=== PATIENT | male | born 1940 | race Caucasian/White ===

== ENCOUNTER → 2016-09-17 15:55 | Emergency (ER) | payer MEDICARE ==
[2016-09-17 17:13] LABS: Hematocrit 40 % (42-52); Mean Corpuscular HGB Conc 33 g/dl (31-36); Mean Corpuscular Hemoglobin 29 pg (27-31); Mean Corpuscular Volume 90 fL (80-94); Mean Platelet Volume 10 um3 (7.4-10.4); Red Blood Count 4.43 10^6/ul (4.0-5.4); Red Cell Distribution Width 17 % (10.5-15); White Blood Count 8.4 10^3/ul (3.5-10.8)
[2016-09-17 17:24] LABS: Albumin 4.1 g/dL (3.2-5.2); BUN/Creatinine Ratio 18.3 (8-20); Calcium 9.5 mg/dL (8.6-10.3); EGFR African American 76.1 (>60); EGFR Non-African American 59.2 (>60); Globulin 3.3 g/dL (2-4); Potassium 4.4 mmol/L (3.5-5.0); Total Bilirubin 1.2 mg/dL (0.2-1.0); Total Protein 7.4 g/dL (6.4-8.9)
[2016-09-17 19:20] VITALS: BP 146/71
--- NOTE | 2016-09-18 | ED ---
Madelyn Valdez Salem, scribed for David Price MD on 09/17/16 at 1846 . GI/ HPI - HPI Summary HPI Summary: Patient is a 76 M who presents to the ED with black tarry stool for the past few days. He states that he has been making a BM approximately 3 times a day (2 , thus far today). He reports lethargy and SOB. 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 Ray today and was directed to the ED. - History of Current Complaint Chief Complaint: EDGIBleed Time Seen by Provider: 09/17/16 18:24 Stated Complaint: BLACK STOOL, SENT BY DR RAY Hx Obtained From: Patient Onset/Duration: Started Days Ago, Atraumatic, Still Present Timing: Intermittent Severity: Moderate Current Severity: Moderate Pain Intensity: 0 Associated Signs and Symptoms: Positive: Black Tarry Stool Aggravating Factor(s): Nothing Alleviating Factor(s): Nothing - Allergy/Home Medications Allergies/Adverse Reactions: Allergies Allergy/AdvReac Type Severity Reaction Status Date / Time Bacitracin [From Polysporin] Allergy Rash Verified 12/29/15 12:50 Irbesartan [From Avapro] Allergy Unknown Verified 12/29/15 12:50 Reaction Details Amiodarone AdvReac Headache Verified 12/29/15 12:50 Ciprofloxacin [From Cipro] AdvReac Headache Verified 12/29/15 12:50 Dofetilide [From Tikosyn] AdvReac Headache Verified 12/29/15 12:50 Gabapentin AdvReac See Comment Verified 12/29/15 12:50 Hydrocodone AdvReac GI Upset Verified 12/29/15 12:50 Lisinopril AdvReac Coughing Verified 12/29/15 12:50 Polymyxin B [From Polysporin] AdvReac Rash Verified 12/29/15 12:50 Sotalol AdvReac Headache Verified 12/29/15 12:50 Spironolactone AdvReac See Comment Verified 12/29/15 12:50 [From Aldactone] PMH/Surg Hx/FS Hx/Imm Hx Endocrine/Hematology History: Reports: Hx Thyroid Disease Denies: Hx Diabetes, Hx Systemic Lupus Erythematosus Cardiovascular History: Reports: Hx Auto Implanted Cardiovert Defib, Hx Congestive Heart Failure, Hx Coronary Artery Disease, Hx Hypertension, Hx Pacemaker/ICD Respiratory History: Reports: Hx Asthma Denies: Hx Chronic Obstructive Pulmonary Disease (COPD) GI History: Reports: Hx Gastroesophageal Reflux Disease, Hx Ulcer History: Denies: Hx Renal Disease Musculoskeletal History: Reports: Hx Arthritis - LEFT HIP Sensory History: Reports: Hx Contacts or Glasses Denies: Hx Cataracts Opthamlomology History: Reports: Hx Contacts or Glasses Denies: Hx Cataracts Neurological History: Reports: Hx Migraine - MEDICATION RXN - Cancer History Hx Chemotherapy: No - Surgical History Surgery Procedure, Year, and Place: ICD PLACEMENT, LT TOTAL HIP, KNEE, CABG, TONSILLECTOMY, APPENDECTOMY, CHOLECYSTECTOMY, VOCAL CHORD SURGERY Hx Anesthesia Reactions: No Infectious Disease History: No Infectious Disease History: Denies: Hx Hepatitis, Hx Human Immunodeficiency Virus (HIV), Traveled Outside the [place] in Last 30 Days - Family History Known Family History: Positive: Cardiac Disease, Hypertension - Social History Alcohol Use: None Substance Use Type: Reports: None Smoking Status (MU): Former Smoker Type: Cigarettes, Pipe Have You Smoked in the Last Year: No Review of Systems Positive: Other - Lethargy. Positive: Shortness Of Breath Positive: other - Black tarry stool. All Other Systems Reviewed And Are Negative: Yes Physical Exam Triage Information Reviewed: Yes Vital Signs On Initial Exam: Initial Vitals Temp Pulse Resp BP Pulse Ox 97.4 F 80 16 143/78 99 09/17/16 16:22 09/17/16 16:22 09/17/16 16:22 09/17/16 16:22 09/17/16 16:22 Vital Signs Reviewed: Yes Appearance: Positive: Well-Appearing, No Pain Distress, Obese Skin: Positive: Warm, Skin Color Reflects Adequate Perfusion, Dry Head/Face: Positive: Normal Head/Face Inspection Eyes: Positive: Normal Neck: Positive: Supple, Nontender Respiratory/Lung Sounds: Positive: Clear to Auscultation, Breath Sounds Present Cardiovascular: Positive: RRR Abdomen Description: Positive: Nontender, Soft Bowel Sounds: Positive: Present Musculoskeletal: Positive: Normal Neurological: Positive: Normal Psychiatric: Positive: Normal, Affect/Mood Appropriate Diagnostics - Vital Signs Vital Signs Temp Pulse Resp BP Pulse Ox 09/17/16 17:39 97.3 F 84 17 140/79 100 09/17/16 16:22 97.4 F 80 16 143/78 99 - Laboratory Lab Results: Lab Results 09/17/16 09/17/16 09/17/16 Range/Units 16:30 16:30 16:30 WBC 8.4 (3.5-10.8) 10^3/ul RBC 4.43 (4.0-5.4) 10^6/ul Hgb 13.0 L (14.0-18.0) g/dl Hct 40 L (42-52) % MCV 90 (80-94) fL MCH 29 (27-31) pg MCHC 33 (31-36) g/dl RDW 17 H (10.5-15) % Plt Count 134 L (150-450) 10^3/ul MPV 10 (7.4-10.4) um3 Neut % (Auto) 62.1 (38-83) % Lymph % (Auto) 16.0 L (25-47) % Morrison % (Auto) 12.1 H (1-9) % Eos % (Auto) 8.7 H (0-6) % Baso % (Auto) 1.1 (0-2) % Absolute Neuts (auto) 5.2 (1.5-7.7) 10^3/ul Absolute Lymphs (auto) 1.3 (1.0-4.8) 10^3/ul Absolute Monos (auto) 1.0 H (0-0.8) 10^3/ul Absolute Eos (auto) 0.7 H (0-0.6) 10^3/ul Absolute Basos (auto) 0.1 (0-0.2) 10^3/ul Absolute Nucleated RBC 0.01 10^3/ul Nucleated RBC % 0.1 Sodium 137 (133-145) mmol/L Potassium 4.4 (3.5-5.0) mmol/L Chloride 105 (101-111) mmol/L Carbon Dioxide 26 (22-32) mmol/L Anion Gap 6 (2-11) mmol/L BUN 22 (6-24) mg/dL Creatinine 1.20 H (0.67-1.17) mg/dL Est GFR ( Amer) 76.1 (>60) Est GFR (Non-Af Amer) 59.2 (>60) BUN/Creatinine Ratio 18.3 (8-20) Glucose 105 H (70-100) mg/dL Calcium 9.5 (8.6-10.3) mg/dL Total Bilirubin 1.20 H (0.2-1.0) mg/dL AST 23 (13-39) U/L ALT 12 (7-52) U/L Alkaline Phosphatase 51 (34-104) U/L Total Protein 7.4 (6.4-8.9) g/dL Albumin 4.1 (3.2-5.2) g/dL Globulin 3.3 (2-4) g/dL Albumin/Globulin Ratio 1.2 (1-3) Blood Type O Positive Antibody Screen Negative Result Diagrams: 09/17/16 16:30 09/17/16 16:30 Lab Statement: Any lab studies that have been ordered have been reviewed, and results considered in the medical decision making process. Re-Evaluation - Re-Evaluation First Eval Re-Evaluation Time: 18:54 Comment: Discussed plan. GIGU Course/Dx - Course Course Of Treatment: Mr. Romero presented C/O black stools for a few days. He was found to have a hemoglobin of 13 which was normal for him and his BUN was not elevated. Rectal exam revealed black stool on the glove and was guiac positive. Dr. Jewell agreed to follow him closely. Assessment/Plan: Dr. Jewell (gastro) @ 0026. Discussed pt's case. - Diagnoses Provider Diagnoses: GI bleed Discharge - Discharge Plan Condition: Stable Disposition: HOME Patient Education Materials: Gastrointestinal Bleeding (ED) Referrals: Con Jewell MD [Medical Doctor] - Additional Instructions: Please follow up with Dr. Jewell tomorrow. The documentation as recorded by the Madelyn holcomb Salem accurately reflects the service I personally performed and the decisions made by , David Price MD.
--- NOTE | 2016-09-18 18:46 | ED ---
Progress - Progress Note Progress Note: Stool occult blood result is positive - pt was dx'd w/ GI at visit and advised to see GI today for f/u. Called to see if pt has followed up - LMTC if he wasn' t able to go or feeling worse. Re-Evaluation - Re-Evaluation First Eval Re-Evaluation Time: 18:54 Comment: Discussed plan. Course/Dx - Course Course Of Treatment: Mr. Romero presented C/O black stools for a few days. He was found to have a hemoglobin of 13 which was normal for him and his BUN was not elevated. Rectal exam revealed black stool on the glove and was guiac positive. Dr. Jewell agreed to follow him closely. - Diagnoses Provider Diagnoses: GI bleed
== END | disposition home or self-care (01) ==
LOC: ED 15:55
DX: K92.2 Gastrointestinal hemorrhage, unspecified (principal); E07.9 Disorder of thyroid, unspecified; I25.10 Atherosclerotic heart disease of native coronary artery without angina pectoris; I10 Essential (primary) hypertension; Z95.0 Presence of cardiac pacemaker; I50.9 Heart failure, unspecified; J45.909 Unspecified asthma, uncomplicated; K21.9 Gastro-esophageal reflux disease without esophagitis; G43.909 Migraine, unspecified, not intractable, without status migrainosus; Z88.1 Allergy status to other antibiotic agents; Z88.5 Allergy status to narcotic agent; Z87.891 Personal history of nicotine dependence
CPT/HCPCS: 36415; 80053; 82272; 85025; 85610; 86850; 86900; 86901; 99282

== ENCOUNTER 2017-07-02 01:59 | Observation (INO) | payer MEDICARE ==
[2017-07-02] MEDS ORDERED: Albuterol/Ipratropium NEB.SOL* Albuterol 2.5 MG/Ipratropium 0.5 MG 3 ML INH ONE (02:41)
[2017-07-02] MEDS ORDERED: Acetaminophen TAB* 325 MG PO ONE (02:41)
[2017-07-02] MEDS ORDERED: methylPREDNISolone 125 MG* 2 ML VIAL IV ONE (02:41)
[2017-07-02] MEDS ORDERED: Magnesium Sulfate 2 GM IV* 2 GM/50 ML BAG IVPB ONE (02:41)
[2017-07-02] MEDS ORDERED: Albuterol 2.5 MG/3 ML NEB.SOL* (0.083%) ONE (02:54)
[2017-07-02] MEDS: Albuterol 2.5 MG/3 ML NEB.SOL* (0.083%) INH SCH ×2 (02:58→02:59)
[2017-07-02 03:04] LABS: EGFR Non-African American 44.3 (>60)
[2017-07-02 03:23] LABS: INR 1.13 (0.77-1.02)
[2017-07-02] MEDS ORDERED: Metoprolol Tartrate IV* 1 MG/ML 5 ML VIAL IV PRN (03:39)
[2017-07-02 03:59] LABS: ABS Basophils 0 10^3/ul (0-0.2); ABS Eosinophils 0.3 10^3/ul (0-0.6); ABS Lymphocytes 0.8 10^3/ul (1.0-4.8); ABS Monocytes 1.1 10^3/ul (0-0.8); ABS Nucleated RBC 0 10^3/ul; Eosinophil % 3.8 % (0-6); Hematocrit 35 % (42-52); Hemoglobin 11.9 g/dl (14.0-18.0); Lymphocyte % 10.1 % (25-47); Mean Corpuscular HGB Conc 34 g/dl (31-36); Mean Corpuscular Hemoglobin 31 pg (27-31); Mean Corpuscular Volume 91 fL (80-94); Mean Platelet Volume 9.8 um3 (7.4-10.4); Nucleated Red Blood Cells % 0; Platelet Count 111 10^3/ul (150-450); Red Blood Count 3.87 10^6/ul (4.0-5.4); Red Cell Distribution Width 17 % (10.5-15); White Blood Count 8.3 10^3/ul (3.5-10.8)
[2017-07-02] MEDS ORDERED: Oseltamivir CAP* 75 MG CAP PO ONE (04:32)
[2017-07-02] MEDS ORDERED: Al Hydrox/Mg Hydrox/Simet LIQ* 30 ML UDC PO PRN (05:01)
[2017-07-02] MEDS ORDERED: Docusate CAP* 100 MG PO PRN (05:01)
[2017-07-02] MEDS ORDERED: Senna TAB PO PRN (05:01)
[2017-07-02] MEDS ORDERED: Ondansetron INJ* 2 MG/ML VIAL IV PRN (05:01)
--- NOTE | 2017-07-02 05:02 | ED ---
Jordy Valdez Tecjoon, scribed for Joe Pimentel MD on 07/02/17 at 0241 . Shortness of Breath - History of Current Complaint Chief Complaint: EDShortnessOfBreath Time Seen by Provider: 07/02/17 02:30 Hx Obtained From: Patient Onset/Duration: Lasting Days, Still Present Timing: Intermittent Episodes Lasting: - 1-2 hours Current Severity: Mild - 2/10 Dyspnea At: Rest Aggrevating Factors: Nothing Alleviating Factors: Nothing Associated Signs & Symptoms: Negative - vomiting, Cough (Productive), Fever, Chills, Nasal Congestion - Allergy/Home Medications Allergies/Adverse Reactions: Allergies Allergy/AdvReac Type Severity Reaction Status Date / Time bacitracin AdvReac Intermediate Rash Verified 07/02/17 02:13 sotalol AdvReac Mild Headache Verified 07/02/17 02:13 amiodarone AdvReac Headache Verified 07/02/17 02:13 ciprofloxacin [From Cipro] AdvReac Headache Verified 07/02/17 02:13 dofetilide [From Tikosyn] AdvReac Headache Verified 07/02/17 02:13 gabapentin AdvReac See Comment Verified 07/02/17 02:13 hydrocodone AdvReac GI Upset Verified 07/02/17 02:13 irbesartan [From Avapro] AdvReac Unknown Verified 07/02/17 02:13 Reaction Details lisinopril AdvReac Coughing Verified 07/02/17 02:13 polymyxin B AdvReac Rash Verified 07/02/17 02:13 spironolactone AdvReac See Comment Verified 07/02/17 02:13 Home Medications: Home Medications Furosemide TAB* [Lasix TAB*] 20 mg PO DAILY 07/02/17 [History Confirmed 07/02/17 ] Mometasone Furoate [Nasonex] 50 mcg NA QPM 07/02/17 [History Confirmed 07/02/17] PMH/Surg Hx/FS Hx/Imm Hx Previously Healthy: No Endocrine/Hematology History: Reports: Hx Thyroid Disease Denies: Hx Diabetes, Hx Systemic Lupus Erythematosus Cardiovascular History: Reports: Hx Auto Implanted Cardiovert Defib, Hx Congestive Heart Failure, Hx Coronary Artery Disease, Hx Hypertension, Hx Pacemaker/ICD Respiratory History: Reports: Hx Asthma Denies: Hx Chronic Obstructive Pulmonary Disease (COPD) GI History: Reports: Hx Gastroesophageal Reflux Disease, Hx Ulcer History: Denies: Hx Renal Disease Musculoskeletal History: Reports: Hx Arthritis - LEFT HIP Sensory History: Reports: Hx Contacts or Glasses Denies: Hx Cataracts Opthamlomology History: Reports: Hx Contacts or Glasses Denies: Hx Cataracts Neurological History: Reports: Hx Migraine - MEDICATION RXN - Cancer History Hx Chemotherapy: No - Surgical History Surgery Procedure, Year, and Place: ICD PLACEMENT, LT TOTAL HIP, KNEE, CABG, TONSILLECTOMY, APPENDECTOMY, CHOLECYSTECTOMY, VOCAL CHORD SURGERY Hx Anesthesia Reactions: No Infectious Disease History: No Infectious Disease History: Denies: Hx Hepatitis, Hx Human Immunodeficiency Virus (HIV), Traveled Outside the [place] in Last 30 Days - Family History Known Family History: Positive: Cardiac Disease, Hypertension - Social History Lives: With Family Alcohol Use: None Hx Substance Use: No Substance Use Type: Reports: None Hx Tobacco Use: Yes Smoking Status (MU): Former Smoker Type: Cigarettes, Pipe Have You Smoked in the Last Year: No Review of Systems Positive: Fever, Chills Positive: Other - nasal congestion Positive: Shortness Of Breath, Cough Positive: Other - back pain All Other Systems Reviewed And Are Negative: Yes Physical Exam - Summary Physical Exam Summary: VITAL SIGNS: Reviewed. GENERAL: Patient is a well-developed and nourished (MALE OR FEMALE) who is lying comfortable in the stretcher. HEAD AND FACE: No signs of trauma. No ecchymosis, hematomas or skull depressions. No sinus tenderness. EYES: PERRLA, EOMI x 2, No injected conjunctiva, no nystagmus. EARS: Hearing grossly intact. Ear canals and tympanic membranes are within normal limits. MOUTH: Oropharynx within normal limits. NECK: JVD CHEST: Symmetric, no tenderness at palpation LUNGS: Mild respiratory distress. Expiratory wheezes.Rhonchi CVS: Regular rate and rhythm, S1 and S2 present, no murmurs or gallops appreciated. ABDOMEN: Soft, non-tender. No signs of distention. No rebound no guarding, and no masses palpated. Bowel sounds are normal. EXTREMITIES: FROM in all major joints, no edema, no cyanosis or clubbing. NEURO: Alert and oriented x 3. No acute neurological deficits. Speech is normal and follows commands. SKIN: Dry and warm Triage Information Reviewed: Yes Vital Signs On Initial Exam: Initial Vitals Temp Pulse Resp BP Pulse Ox 98.1 F 87 26 131/63 97 07/02/17 02:00 07/02/17 02:00 07/02/17 02:00 07/02/17 02:00 07/02/17 02:00 Vital Signs Reviewed: Yes Diagnostics - Vital Signs Vital Signs Temp Pulse Resp BP Pulse Ox 07/02/17 02:00 98.1 F 87 26 131/63 97 - Laboratory Lab Results: Lab Results 07/02/17 07/02/17 07/02/17 Range/Units 02:35 02:35 02:35 WBC (3.5-10.8) 10^3/ul RBC (4.0-5.4) 10^6/ul Hgb (14.0-18.0) g/dl Hct (42-52) % MCV (80-94) fL MCH (27-31) pg MCHC (31-36) g/dl RDW (10.5-15) % Plt Count (150-450) 10^3/ul MPV (7.4-10.4) um3 Neut % (Auto) (38-83) % Lymph % (Auto) (25-47) % [place] % (Auto) (0-7) % Eos % (Auto) (0-6) % Baso % (Auto) (0-2) % Absolute Neuts (auto) (1.5-7.7) 10^3/ul Absolute Lymphs (auto) (1.0-4.8) 10^3/ul Absolute Monos (auto) (0-0.8) 10^3/ul Absolute Eos (auto) (0-0.6) 10^3/ul Absolute Basos (auto) (0-0.2) 10^3/ul Absolute Nucleated RBC 10^3/ul Nucleated RBC % INR (Anticoag Therapy) (0.77-1.02) APTT (26.0-36.3) seconds Patient Temperature ABG pH (7.35-7.45) ABG pH (Temp Correct) ABG pCO2 (35-45) mmHg ABG pCO2 (Temp Corrct ABG pO2 (80-100) mmHg ABG pO2 (Temp Correct ABG HCO3 (19-31) mmol/L ABG O2 Saturation (95-98) % ABG Base Excess (-2.0-2.0) Respiration Rate O2 Delivery Device Ventilator Type Vent Mode FiO2 Inspiratory Time PEEP Pressure Support Pressure Control EPAP IPAP BiPAP Sodium 134 L (139-145) mmol/L Potassium 4.7 (3.5-5.0) mmol/L Chloride 103 (101-111) mmol/L Carbon Dioxide 24 (22-32) mmol/L Anion Gap 7 (2-11) mmol/L BUN 29 H (6-24) mg/dL Creatinine 1.54 H (0.67-1.17) mg/dL Est GFR ( Amer) 56.9 (>60) Est GFR (Non-Af Amer) 44.3 (>60) BUN/Creatinine Ratio 18.8 (8-20) Glucose 162 H (70-100) mg/dL Lactic Acid 1.5 (0.5-2.0) mmol/L Calcium 8.9 (8.6-10.3) mg/dL Total Bilirubin 1.10 H (0.2-1.0) mg/dL AST 22 (13-39) U/L ALT 14 (7-52) U/L Alkaline Phosphatase 75 (34-104) U/L Troponin I 0.04 H* (<0.04) ng/mL C-Reactive Protein 54.87 H (< 5.00) mg/L B-Natriuretic Peptide 186 H ( - 100) pg/mL Total Protein 7.4 (6.4-8.9) g/dL Albumin 3.9 (3.2-5.2) g/dL Globulin 3.5 (2-4) g/dL Albumin/Globulin Ratio 1.1 (1-3) Influenza A (Rapid) (Negative) Influenza B (Rapid) (Negative) 07/02/17 07/02/17 07/02/17 Range/Units 02:35 03:47 03:55 WBC 8.3 (3.5-10.8) 10^3/ul RBC 3.87 L (4.0-5.4) 10^6/ul Hgb 11.9 L (14.0-18.0) g/dl Hct 35 L (42-52) % MCV 91 (80-94) fL MCH 31 (27-31) pg MCHC 34 (31-36) g/dl RDW 17 H (10.5-15) % Plt Count 111 L (150-450) 10^3/ul MPV 9.8 (7.4-10.4) um3 Neut % (Auto) 72.9 (38-83) % Lymph % (Auto) 10.1 L (25-47) % [place] % (Auto) 12.7 H (0-7) % Eos % (Auto) 3.8 (0-6) % Baso % (Auto) 0.5 (0-2) % Absolute Neuts (auto) 6.0 (1.5-7.7) 10^3/ul Absolute Lymphs (auto) 0.8 L (1.0-4.8) 10^3/ul Absolute Monos (auto) 1.1 H (0-0.8) 10^3/ul Absolute Eos (auto) 0.3 (0-0.6) 10^3/ul Absolute Basos (auto) 0 (0-0.2) 10^3/ul Absolute Nucleated RBC 0 10^3/ul Nucleated RBC % 0 INR (Anticoag Therapy) 1.13 H (0.77-1.02) APTT 32.6 (26.0-36.3) seconds Patient Temperature Not Reportable ABG pH 7.43 (7.35-7.45) ABG pH (Temp Correct) Not Reportable ABG pCO2 34 L (35-45) mmHg ABG pCO2 (Temp Corrct Not Reportable ABG pO2 81 (80-100) mmHg ABG pO2 (Temp Correct Not Reportable ABG HCO3 24.0 (19-31) mmol/L ABG O2 Saturation 98.0 (95-98) % ABG Base Excess -1.2 (-2.0-2.0) Respiration Rate Not Reportable O2 Delivery Device nasal cannula Ventilator Type Not Reportable Vent Mode Not Reportable FiO2 32 Inspiratory Time Not Reportable PEEP Not Reportable Pressure Support Not Reportable Pressure Control Not Reportable EPAP Not Reportable IPAP Not Reportable BiPAP Not Reportable Sodium (139-145) mmol/L Potassium (3.5-5.0) mmol/L Chloride (101-111) mmol/L Carbon Dioxide (22-32) mmol/L Anion Gap (2-11) mmol/L BUN (6-24) mg/dL Creatinine (0.67-1.17) mg/dL Est GFR ( Amer) (>60) Est GFR (Non-Af Amer) (>60) BUN/Creatinine Ratio (8-20) Glucose (70-100) mg/dL Lactic Acid (0.5-2.0) mmol/L Calcium (8.6-10.3) mg/dL Total Bilirubin (0.2-1.0) mg/dL AST (13-39) U/L ALT (7-52) U/L Alkaline Phosphatase (34-104) U/L Troponin I (<0.04) ng/mL C-Reactive Protein (< 5.00) mg/L B-Natriuretic Peptide ( - 100) pg/mL Total Protein (6.4-8.9) g/dL Albumin (3.2-5.2) g/dL Globulin (2-4) g/dL Albumin/Globulin Ratio (1-3) Influenza A (Rapid) (Negative) Influenza B (Rapid) (Negative) 07/02/17 Range/Units 03:58 WBC (3.5-10.8) 10^3/ul RBC (4.0-5.4) 10^6/ul Hgb (14.0-18.0) g/dl Hct (42-52) % MCV (80-94) fL MCH (27-31) pg MCHC (31-36) g/dl RDW (10.5-15) % Plt Count (150-450) 10^3/ul MPV (7.4-10.4) um3 Neut % (Auto) (38-83) % Lymph % (Auto) (25-47) % [place] % (Auto) (0-7) % Eos % (Auto) (0-6) % Baso % (Auto) (0-2) % Absolute Neuts (auto) (1.5-7.7) 10^3/ul Absolute Lymphs (auto) (1.0-4.8) 10^3/ul Absolute Monos (auto) (0-0.8) 10^3/ul Absolute Eos (auto) (0-0.6) 10^3/ul Absolute Basos (auto) (0-0.2) 10^3/ul Absolute Nucleated RBC 10^3/ul Nucleated RBC % INR (Anticoag Therapy) (0.77-1.02) APTT (26.0-36.3) seconds Patient Temperature ABG pH (7.35-7.45) ABG pH (Temp Correct) ABG pCO2 (35-45) mmHg ABG pCO2 (Temp Corrct ABG pO2 (80-100) mmHg ABG pO2 (Temp Correct ABG HCO3 (19-31) mmol/L ABG O2 Saturation (95-98) % ABG Base Excess (-2.0-2.0) Respiration Rate O2 Delivery Device Ventilator Type Vent Mode FiO2 Inspiratory Time PEEP Pressure Support Pressure Control EPAP IPAP BiPAP Sodium (139-145) mmol/L Potassium (3.5-5.0) mmol/L Chloride (101-111) mmol/L Carbon Dioxide (22-32) mmol/L Anion Gap (2-11) mmol/L BUN (6-24) mg/dL Creatinine (0.67-1.17) mg/dL Est GFR ( Amer) (>60) Est GFR (Non-Af Amer) (>60) BUN/Creatinine Ratio (8-20) Glucose (70-100) mg/dL Lactic Acid (0.5-2.0) mmol/L Calcium (8.6-10.3) mg/dL Total Bilirubin (0.2-1.0) mg/dL AST (13-39) U/L ALT (7-52) U/L Alkaline Phosphatase (34-104) U/L Troponin I (<0.04) ng/mL C-Reactive Protein (< 5.00) mg/L B-Natriuretic Peptide ( - 100) pg/mL Total Protein (6.4-8.9) g/dL Albumin (3.2-5.2) g/dL Globulin (2-4) g/dL Albumin/Globulin Ratio (1-3) Influenza A (Rapid) Positive A (Negative) Influenza B (Rapid) Negative (Negative) Result Diagrams: 07/02/17 03:47 07/02/17 02:35 Lab Statement: Any lab studies that have been ordered have been reviewed, and results considered in the medical decision making process. - Radiology CXR Xray Interpretation: No Acute Changes - CXR reveals, per radiologist, IMPRESSION : NO ACUTE PROCESS. ED physician has reviewed this radiology report. Radiology Interpretation Completed By: Radiologist - EKG 0205 Cardiac Rate: NL EKG Interpretation: paced rhythm at 81 BPM Course/Dx - Course Course Of Treatment: This patient is a 77 year old male presenting to [facility] accompanied by with a chief complaint of SOB since approx. yesterday evening. An EKG, taken 0205, reveals paced rhythm at 81 BPM. CXR reveals, per radiologist, IMPRESSION: NO ACUTE PROCESS. ED physician has reviewed this radiology report. Bloodwork Obtained. Urinalysis Obtained. Test results with no significant abnormalities except for Troponin. In the ED course the patient was given Tylenol, Albuterol, Magnesium Sulfate, Methylprednisolone, Tamiflu. We discussed patient care with Dr. Donovan (Hospitalist) and they agreed to admit the patient. Patient will be admitted with a diagnosis for Flu A and asthma. The patient is agreeable with this plan. - Diagnoses Provider Diagnoses: Flu, Asthma - Physician Notifications Discussed Care of Patient With: Carmela Donovan - Hospitalist Time Discussed With Above Provider: 04:38 - We discussed patient care with Dr. Donovan (Hospitalist) and they agreed to admit the patient. Instructed by Provider To: Admit As Inpatient Discharge - Sign-Out/Discharge Documenting (check all that apply): Discharge - admitted - Discharge Plan Condition: Stable Disposition: ADMITTED TO [facility] Referrals: Jaspal Jerry MD [Primary Care Provider] - The documentation as recorded by the Jordy holcomb Tecjoon accurately reflects the service I personally performed and the decisions made by , Joe Pimentel MD.
[2017-07-02] MEDS ORDERED: Triamcinolone 0.5% OINT * 15 GM TUBE TOPICAL PRN (05:05)
[2017-07-02] MEDS ORDERED: Albuterol 2.5 MG/3 ML NEB.SOL* (0.083%) INH PRN (05:06)
[2017-07-02] MEDS ORDERED: NS 0.9% 1000 ML* 1,000 ML IV ONE (05:22)
[2017-07-02] MEDS: Carvedilol TAB* 6.25 MG PO SCH ×2 (06:25→18:06)
[2017-07-02] MEDS: Levothyroxine TAB* 100 MCG TAB PO SCH (06:25)
[2017-07-02] MEDS: Heparin VIAL(*) 5000 UNITS/ML VIAL (FIVE THOUSAND) SUBCUT SCH ×3 (06:25→21:33)
[2017-07-02 07:07] LABS: Urine Appearance Clear; Urine Blood 1+ (Negative); Urine Color Yellow; Urine Ketones Negative (Negative); Urine Protein 1+(30 mg/dL) (Negative); Urine Specific Gravity 1.018 (1.010-1.030); Urine Urobilinogen Negative (Negative)
[2017-07-02] MEDS: Aspirin EC TAB* 81 MG TAB.EC PO SCH (08:01)
[2017-07-02] MEDS: CMCS:Epleronone (NF) 25 MG TAB PO SCH (08:02)
[2017-07-02] MEDS: Magnesium Oxide TAB* 400 MG PO SCH ×2 (08:02→21:33)
[2017-07-02] MEDS: predniSONE TAB* 20 MG PO SCH (08:02)
--- NOTE | 2017-07-02 08:02 | RAD ---
Indication: Shortness of breath. Single frontal view of the chest performed at 0316 hours was reviewed. Comparison is made with previous exam dated March 15, 2015. Cardiomegaly is noted. Pacemaker leads are in place. Interstitial edema consistent with vascular congestion is noted. No definite pneumonia is identified. Patient is status post transsternal thoracotomy. IMPRESSION: CARDIOMEGALY WITH INTERSTITIAL EDEMA. PACEMAKER LEADS IN PLACE. PATIENT IS STATUS POST CHANGED STERNAL THORACOTOMY.
--- NOTE | 2017-07-02 08:54 | HP ---
CC: Jaspal Jerry MD; [facility] * HISTORY AND PHYSICAL: DATE OF ADMISSION: 07/02/17 TIME OF EVALUATION: 0500. PRIMARY CARE PHYSICIAN: Jaspal Jerry MD CHIEF COMPLAINT: Shortness of breath and wheezing. HISTORY OF PRESENT ILLNESS: This is a 77-year-old male with past medical history of COPD and ischemic cardiomyopathy who presents to the emergency room with several days of shortness of breath, coughing, and wheezing. The patient states he started with a head cold on 06/28/17. Over the past two days , he developed more chest congestion with coughing, wheezing, and shortness of breath. He has been using his albuterol at home with little relief. Last evening. He was having significant amount of difficulty. He woke his who brought him to the emergency room. He has not any fevers today. His last fever was on 06/30/17. He has no nausea or vomiting. He had had diarrhea for the past few days. He has been taking adequate PO. He denies any chest pain. He is having some back pain. No abdominal pain. No urinary symptoms. He has had some lightheadedness. He states he lost a few pounds over the past few days. No lower extremity swelling. In the emergency room, the patient had labs and imaging. He was found to have influenza A positive and concern for COPD exacerbation. He was given albuterol neb, DuoNeb, magnesium sulphate, methylprednisolone, and Tamiflu. He was referred to the hospitalist service for further evaluation. PAST MEDICAL HISTORY: 1. History of COPD on room air. 2. History of atrial fibrillation. 3. History of ischemic cardiomyopathy with ejection fraction of 20 to 25%. 4. History of hypothyroidism. 5. Hyperlipidemia. 6. Coronary artery disease. 7. GERD. 8. History of abdominal aortic aneurysm. 9. History of ICD placement. 10. History of GI bleed. 11. History of pressure ulcer after hip replacement. 12. History of coronary artery bypass graft. 13. History of total left hip replacement. 14. History of an VT. MEDICATIONS: 1. Mometasone 50 mcg nasally in the evening. 2. Lasix 20 mg daily. 3. Lidex topically as needed. 4. Asmanex 220 mcg daily. 5. Simvastatin 40 mg daily. 6. Nitroglycerin 0.4 mg sublingual q. 5 hours as needed. 7. Synthroid 100 mcg daily. 8. Krill [place]-3 DHEA/EPA [place]-3 one cap daily. 9. Albuterol inhaler two puffs every 4 to 6 hours as needed. 10. Magnesium oxide 400 mg p.o. b.i.d. 11. Eplerenone 25 mg p.o. daily. 12. Digoxin 0.125 mg p.o. daily. 13. Candesartan 8 mg p.o. daily. 14. Aspirin 81 mg daily. 15. Carvedilol 12.5 p.o. daily. ALLERGIES: 1. BACITRACIN. 2. SOTALOL. 3. AMIODARONE. 4. CIPROFLOXACIN. 5. DOFETILIDE. 6. GABAPENTIN. 7. HYDROCODONE. 8. IRBESARTAN. 9. LISINOPRIL. 10. POLYMYXIN. 11. SPIRONOLACTONE. FAMILY HISTORY: Known family history of early coronary artery disease; father from a stroke; mother from leukemia. SOCIAL HISTORY: The patient lives at home with his , Cindy. He is relatively independent. He quit smoking back in 1995. No alcohol use. He is retired, worked for [employer]. Healthcare proxy is his , Cindy. CODE STATUS: Full code. REVIEW OF SYSTEMS: A 14-point review of systems as mentioned in the HPI, otherwise negative. PHYSICAL EXAMINATION GENERAL: In no acute distress, resting comfortably with his at the bedside. VITAL SIGNS: Temp 98, pulse rate 71, respiratory rate 17, oxygen saturation 97 % on 3 L, and blood pressure 124/60. HEENT: Head is normocephalic. Pupils are equal and reactive. Anicteric. Oropharynx, mucous membranes moist. NECK: Supple. No lymphadenopathy. RESPIRATORY: Bilateral expiratory wheezing with prolonged expiratory phase. No rhonchi or rales. No increased work of breathing. CARDIAC: Regular rate and rhythm. Soft systolic murmur heard throughout. ABDOMEN: Soft, nontender, and nondistended. EXTREMITIES: No clubbing, cyanosis, or edema. +1 DPs. NEUROLOGIC: Alert and oriented x3. No gross focal neurologic deficits. LABORATORY DATA: White count 8.3, hemoglobin 11.9, hematocrit 35, and platelets 111. INR 1.13. Sodium 134, potassium 4.7, chloride 103, bicarb 24, BUN 29, creatinine 1.54, glucose 162, troponin 0.04, CRP 54. BNP 186. Serology influenza A positive. EKG shows atrial fibrillation, flutter, with paced rhythm and ectopic beats. Chest x-ray, wet read, no acute pulmonary disease. ASSESSMENT: This 77-year-old male with past medical history of chronic obstructive pulmonary disease and ischemic cardiomyopathy presents to the emergency room with worsening shortness of breath, cough, and wheeze found to be influenza A positive. 1. Shortness of breath, wheezing, and coughing. Assessment: The patient with influenza A also triggering a chronic obstructive pulmonary disease exacerbation. He has no chest pain to suggest a cardiac event and no indication that this is pneumonia. No white count and chest x-ray findings. Plan: We will admit him to telemetry in the setting of a mildly bumped troponin. We will trend his troponin. We will renally dose his Tamiflu, continue that. We will continue prednisone at 40 mg, DuoNeb, and albuterol nebs as needed, and we we will give him a gentle bolus of fluid now and bolus as needed, and follow up on cultures. 2. Chronic medical problems regarding his cardiac history with atrial fibrillation, coronary artery disease. Continue his Coreg and his aspirin. We will hold his candesartan for now as we do not have this on formulary. We will check digoxin level and continue that if indicated, and continue eplerenone, continue magnesium oxide. We will hold his Lasix in the setting of his infectious presentation. 3. Hyperlipidemia. We will hold his Zocor for now as we do not have that on formulary. 4. Chronic obstructive pulmonary disease. We will hold his Asmanex for now as we do not have that on formulary. 5. Fluids, electrolytes, and nutrition. Low-salt, heart-healthy diet. 6. DVT prophylaxis. The patient scores a high risk. We will place him on heparin subcu t.i.d. 7. Code status. Full code. TIME SPENT: Greater than 60 minutes spent doing history and physical, more than half the time spent in patient contact. [id number]/[facility] #: [id number] DAVID
[2017-07-02] MEDS: Albuterol/Ipratropium NEB.SOL* Albuterol 2.5 MG/Ipratropium 0.5 MG 3 ML INH PRN ×2 (13:00→22:12)
--- NOTE | 2017-07-02 15:18 | PN ---
Subjective Date of Service: 07/02/17 Interval History: Feels better now. Scant yellow sputum. Less SOB. Appetite OK. No new c/o. He has no meds at home to use in his nebulizer. He had the flu vaccine. Objective Active Medications: Acetaminophen (Tylenol Tab*) 650 mg PO Q4H PRN PRN Reason: FEVER/PAIN Al Hydrox/Mg Hydrox/Simethicone (Maalox Plus*) 30 ml PO Q6H PRN PRN Reason: INDIGESTION Albuterol (Ventolin 2.5 Mg/3 Ml Neb.Isela*) 2.5 mg INH Q2H PRN PRN Reason: SOB/WHEEZING Albuterol/Ipratropium (Duoneb (Albuterol 2.5 Mg/Ipratropium 0.5 Mg)) 1 neb INH Q4H PRN PRN Reason: SOB/WHEEZING Last Admin: 07/02/17 13:00 Dose: 1 neb Aspirin (Aspirin Ec Tab*) 81 mg PO DAILY [facility] Last Admin: 07/02/17 08:01 Dose: 81 mg Carvedilol (Coreg Tab*) 12.5 mg PO BID@0600,1800 [facility] Last Admin: 07/02/17 06:25 Dose: 12.5 mg Digoxin (Lanoxin Tab*) 0.125 mg PO DAILY@1700 [facility] Docusate Sodium (Colace Cap*) 100 mg PO BID PRN PRN Reason: CONSTIPATION Eplerenone (Inspra (Nf)) 25 mg PO DAILY [facility] PRN Reason: Protocol Last Admin: 07/02/17 08:02 Dose: 25 mg Heparin Sodium (Porcine) (Heparin Vial(*)) 5,000 units SUBCUT Q8HR [facility] Last Admin: 07/02/17 15:05 Dose: 5,000 units Levothyroxine Sodium (Synthroid Tab*) 100 mcg PO DAILY@0600 [facility] Last Admin: 07/02/17 06:25 Dose: 100 mcg Magnesium Oxide (Magox 400 Tab*) 400 mg PO BID [facility] Last Admin: 07/02/17 08:02 Dose: 400 mg Ondansetron HCl (Zofran Inj*) 4 mg IV Q4H PRN PRN Reason: NAUSEA/VOMITING Oseltamivir Phosphate (Tamiflu Susp 30 Mg Dose*) 30 mg PO BID [facility] Stop: 07/06/17 09:01 Prednisone (Deltasone Tab*) 40 mg PO DAILY [facility] Last Admin: 07/02/17 08:02 Dose: 40 mg Senna (Senokot Tab*) 1 tab PO BID PRN PRN Reason: CONSTIPATION Triamcinolone Acetonide (Triamcinolone 0.5% Oint *) 1 applic TOPICAL DAILY PRN PRN Reason: ITCHING Vital Signs - 8 hr 07/02/17 07/02/17 08:32 13:02 Temperature 98.9 F Pulse Rate 71 80 Respiratory 20 Rate Blood Pressure 123/84 (mmHg) O2 Sat by Pulse 96 Oximetry Oxygen Devices in Use Now: None Appearance: Alert, partly up in bed. In good spirits. Looks comfortable. Eyes: No Scleral Icterus Neck: NL Appearance and Movements; NL JVP, No Thyroid Enlargement, Masses Respiratory: Symmetrical Chest Expansion and Respiratory Effort, Clear to Auscultation, Clear to Palpation, - - diminished BS BL Cardiovascular: NL Sounds; No Murmurs; No JVD, RRR, No Edema, - Extremities: No Edema, No Clubbing, Cyanosis, - Skin: No Rash or Ulcers, No Nodules or Sclerosis, - Neurological: Alert and Oriented x 3, NL Sensation Result Diagrams: 07/02/17 03:47 07/02/17 02:35 Additional Lab and Data: Lab Results 07/02/17 07/02/17 07/02/17 Range/Units 02:35 02:35 02:35 WBC (3.5-10.8) 10^3/ul RBC (4.0-5.4) 10^6/ul Hgb (14.0-18.0) g/dl Hct (42-52) % MCV (80-94) fL MCH (27-31) pg MCHC (31-36) g/dl RDW (10.5-15) % Plt Count (150-450) 10^3/ul MPV (7.4-10.4) um3 Neut % (Auto) (38-83) % Lymph % (Auto) (25-47) % [place] % (Auto) (0-7) % Eos % (Auto) (0-6) % Baso % (Auto) (0-2) % Absolute Neuts (auto) (1.5-7.7) 10^3/ul Absolute Lymphs (auto) (1.0-4.8) 10^3/ul Absolute Monos (auto) (0-0.8) 10^3/ul Absolute Eos (auto) (0-0.6) 10^3/ul Absolute Basos (auto) (0-0.2) 10^3/ul Absolute Nucleated RBC 10^3/ul Nucleated RBC % INR (Anticoag Therapy) (0.77-1.02) APTT (26.0-36.3) seconds Patient Temperature ABG pH (7.35-7.45) ABG pH (Temp Correct) ABG pCO2 (35-45) mmHg ABG pCO2 (Temp Corrct ABG pO2 (80-100) mmHg ABG pO2 (Temp Correct ABG HCO3 (19-31) mmol/L ABG O2 Saturation (95-98) % ABG Base Excess (-2.0-2.0) Respiration Rate O2 Delivery Device Ventilator Type Vent Mode FiO2 Inspiratory Time PEEP Pressure Support Pressure Control EPAP IPAP BiPAP Sodium 134 L (139-145) mmol/L Potassium 4.7 (3.5-5.0) mmol/L Chloride 103 (101-111) mmol/L Carbon Dioxide 24 (22-32) mmol/L Anion Gap 7 (2-11) mmol/L BUN 29 H (6-24) mg/dL Creatinine 1.54 H (0.67-1.17) mg/dL Est GFR ( Amer) 56.9 (>60) Est GFR (Non-Af Amer) 44.3 (>60) BUN/Creatinine Ratio 18.8 (8-20) Glucose 162 H (70-100) mg/dL Lactic Acid 1.5 (0.5-2.0) mmol/L Calcium 8.9 (8.6-10.3) mg/dL Total Bilirubin 1.10 H (0.2-1.0) mg/dL AST 22 (13-39) U/L ALT 14 (7-52) U/L Alkaline Phosphatase 75 (34-104) U/L Troponin I 0.04 H* (<0.04) ng/mL C-Reactive Protein 54.87 H (< 5.00) mg/L B-Natriuretic Peptide 186 H ( - 100) pg/mL Total Protein 7.4 (6.4-8.9) g/dL Albumin 3.9 (3.2-5.2) g/dL Globulin 3.5 (2-4) g/dL Albumin/Globulin Ratio 1.1 (1-3) Influenza A (Rapid) (Negative) Influenza B (Rapid) (Negative) 07/02/17 07/02/17 07/02/17 Range/Units 02:35 03:47 03:55 WBC 8.3 (3.5-10.8) 10^3/ul RBC 3.87 L (4.0-5.4) 10^6/ul Hgb 11.9 L (14.0-18.0) g/dl Hct 35 L (42-52) % MCV 91 (80-94) fL MCH 31 (27-31) pg MCHC 34 (31-36) g/dl RDW 17 H (10.5-15) % Plt Count 111 L (150-450) 10^3/ul MPV 9.8 (7.4-10.4) um3 Neut % (Auto) 72.9 (38-83) % Lymph % (Auto) 10.1 L (25-47) % [place] % (Auto) 12.7 H (0-7) % Eos % (Auto) 3.8 (0-6) % Baso % (Auto) 0.5 (0-2) % Absolute Neuts (auto) 6.0 (1.5-7.7) 10^3/ul Absolute Lymphs (auto) 0.8 L (1.0-4.8) 10^3/ul Absolute Monos (auto) 1.1 H (0-0.8) 10^3/ul Absolute Eos (auto) 0.3 (0-0.6) 10^3/ul Absolute Basos (auto) 0 (0-0.2) 10^3/ul Absolute Nucleated RBC 0 10^3/ul Nucleated RBC % 0 INR (Anticoag Therapy) 1.13 H (0.77-1.02) APTT 32.6 (26.0-36.3) seconds Patient Temperature Not Reportable ABG pH 7.43 (7.35-7.45) ABG pH (Temp Correct) Not Reportable ABG pCO2 34 L (35-45) mmHg ABG pCO2 (Temp Corrct Not Reportable ABG pO2 81 (80-100) mmHg ABG pO2 (Temp Correct Not Reportable ABG HCO3 24.0 (19-31) mmol/L ABG O2 Saturation 98.0 (95-98) % ABG Base Excess -1.2 (-2.0-2.0) Respiration Rate Not Reportable O2 Delivery Device nasal cannula Ventilator Type Not Reportable Vent Mode Not Reportable FiO2 32 Inspiratory Time Not Reportable PEEP Not Reportable Pressure Support Not Reportable Pressure Control Not Reportable EPAP Not Reportable IPAP Not Reportable BiPAP Not Reportable Sodium (139-145) mmol/L Potassium (3.5-5.0) mmol/L Chloride (101-111) mmol/L Carbon Dioxide (22-32) mmol/L Anion Gap (2-11) mmol/L BUN (6-24) mg/dL Creatinine (0.67-1.17) mg/dL Est GFR ( Amer) (>60) Est GFR (Non-Af Amer) (>60) BUN/Creatinine Ratio (8-20) Glucose (70-100) mg/dL Lactic Acid (0.5-2.0) mmol/L Calcium (8.6-10.3) mg/dL Total Bilirubin (0.2-1.0) mg/dL AST (13-39) U/L ALT (7-52) U/L Alkaline Phosphatase (34-104) U/L Troponin I (<0.04) ng/mL C-Reactive Protein (< 5.00) mg/L B-Natriuretic Peptide ( - 100) pg/mL Total Protein (6.4-8.9) g/dL Albumin (3.2-5.2) g/dL Globulin (2-4) g/dL Albumin/Globulin Ratio (1-3) Influenza A (Rapid) (Negative) Influenza B (Rapid) (Negative) 07/02/17 Range/Units 03:58 WBC (3.5-10.8) 10^3/ul RBC (4.0-5.4) 10^6/ul Hgb (14.0-18.0) g/dl Hct (42-52) % MCV (80-94) fL MCH (27-31) pg MCHC (31-36) g/dl RDW (10.5-15) % Plt Count (150-450) 10^3/ul MPV (7.4-10.4) um3 Neut % (Auto) (38-83) % Lymph % (Auto) (25-47) % [place] % (Auto) (0-7) % Eos % (Auto) (0-6) % Baso % (Auto) (0-2) % Absolute Neuts (auto) (1.5-7.7) 10^3/ul Absolute Lymphs (auto) (1.0-4.8) 10^3/ul Absolute Monos (auto) (0-0.8) 10^3/ul Absolute Eos (auto) (0-0.6) 10^3/ul Absolute Basos (auto) (0-0.2) 10^3/ul Absolute Nucleated RBC 10^3/ul Nucleated RBC % INR (Anticoag Therapy) (0.77-1.02) APTT (26.0-36.3) seconds Patient Temperature ABG pH (7.35-7.45) ABG pH (Temp Correct) ABG pCO2 (35-45) mmHg ABG pCO2 (Temp Corrct ABG pO2 (80-100) mmHg ABG pO2 (Temp Correct ABG HCO3 (19-31) mmol/L ABG O2 Saturation (95-98) % ABG Base Excess (-2.0-2.0) Respiration Rate O2 Delivery Device Ventilator Type Vent Mode FiO2 Inspiratory Time PEEP Pressure Support Pressure Control EPAP IPAP BiPAP Sodium (139-145) mmol/L Potassium (3.5-5.0) mmol/L Chloride (101-111) mmol/L Carbon Dioxide (22-32) mmol/L Anion Gap (2-11) mmol/L BUN (6-24) mg/dL Creatinine (0.67-1.17) mg/dL Est GFR ( Amer) (>60) Est GFR (Non-Af Amer) (>60) BUN/Creatinine Ratio (8-20) Glucose (70-100) mg/dL Lactic Acid (0.5-2.0) mmol/L Calcium (8.6-10.3) mg/dL Total Bilirubin (0.2-1.0) mg/dL AST (13-39) U/L ALT (7-52) U/L Alkaline Phosphatase (34-104) U/L Troponin I (<0.04) ng/mL C-Reactive Protein (< 5.00) mg/L B-Natriuretic Peptide ( - 100) pg/mL Total Protein (6.4-8.9) g/dL Albumin (3.2-5.2) g/dL Globulin (2-4) g/dL Albumin/Globulin Ratio (1-3) Influenza A (Rapid) Positive A (Negative) Influenza B (Rapid) Negative (Negative) Assess/Plan/Problems-Billing Assessment: - Patient Problems (1) Influenza A Current Visit: Yes Status: Acute Code(s): J10.1 - FLU DUE TO OTH IDENT INFLUENZA VIRUS W OTH RESP MANIFEST SNOMED Code(s): 400663763 Comment: Complete oseltamivir course (30 mg bid). (2) COPD exacerbation Current Visit: Yes Status: Acute Code(s): J44.1 - CHRONIC OBSTRUCTIVE PULMONARY DISEASE W (ACUTE) EXACERBATION SNOMED Code(s): 031460934 Comment: Prednisone 40 mg planned for 07/03, taper at home. He should get some meds for his nebulizer at home also. (3) CAD (coronary artery disease) Current Visit: No Status: Chronic Code(s): I25.10 - ATHSCL HEART DISEASE OF [place] CORONARY ARTERY W/O ANG PCTRS SNOMED Code(s): 58056017 Comment: Ischemic cardiomyopathy. ICD in place. Continue his usual cardiac meds. (4) Afib Current Visit: No Status: Chronic Code(s): I48.91 - UNSPECIFIED ATRIAL FIBRILLATION SNOMED Code(s): 61551994 Comment: Continue carvedilol, digoxin, ASA. (5) Hypothyroid Current Visit: No Status: Chronic Code(s): E03.9 - HYPOTHYROIDISM, UNSPECIFIED SNOMED Code(s): 32679630 Comment: Continue levothyroxine.
[2017-07-02] MEDS ORDERED: Digoxin TAB* 0.125 MG PO SCH (17:00)
[2017-07-02] MEDS: Oseltamivir SUSP 30 MG dose* 30 MG/5 ML ORAL.SYRIN PO SCH ×2 (18:04→21:33)
[2017-07-02] MEDS: Acetaminophen TAB* 325 MG PO PRN (21:36)
[2017-07-03] MEDS: Albuterol/Ipratropium NEB.SOL* Albuterol 2.5 MG/Ipratropium 0.5 MG 3 ML INH PRN (03:26)
[2017-07-03] MEDS: Carvedilol TAB* 6.25 MG PO SCH (05:39)
[2017-07-03] MEDS: Levothyroxine TAB* 100 MCG TAB PO SCH (05:40)
[2017-07-03] MEDS: Heparin VIAL(*) 5000 UNITS/ML VIAL (FIVE THOUSAND) SUBCUT SCH (05:40)
[2017-07-03] MEDS: Acetaminophen TAB* 325 MG PO PRN (05:45)
[2017-07-03 06:18] LABS: ABS Basophils 0 10^3/ul (0-0.2); ABS Eosinophils 0 10^3/ul (0-0.6); ABS Lymphocytes 0.8 10^3/ul (1.0-4.8); ABS Monocytes 0.7 10^3/ul (0-0.8); ABS Neutrophils 7.9 10^3/ul (1.5-7.7); ABS Nucleated RBC 0 10^3/ul; Eosinophil % 0 % (0-6); Hematocrit 36 % (42-52); Hemoglobin 12.1 g/dl (14.0-18.0); Lymphocyte % 8.3 % (25-47); Mean Corpuscular HGB Conc 34 g/dl (31-36); Mean Corpuscular Hemoglobin 31 pg (27-31); Mean Corpuscular Volume 91 fL (80-94); Mean Platelet Volume 10.3 um3 (7.4-10.4); Nucleated Red Blood Cells % 0.1; Platelet Count 116 10^3/ul (150-450); Red Blood Count 3.91 10^6/ul (4.0-5.4); Red Cell Distribution Width 17 % (10.5-15); White Blood Count 9.5 10^3/ul (3.5-10.8)
[2017-07-03 06:35] LABS: EGFR Non-African American 46.3 (>60)
--- NOTE | 2017-07-03 07:31 | DS ---
CC: Dr. Steele * DISCHARGE SUMMARY: DATE OF ADMISSION: DATE OF DISCHARGE: 07/02/17 HISTORY OF PRESENT ILLNESS: This 77-year-old man was brought in because of chest pain. The patient has memory deficit and he does not remember chest pain ; however, his heard his complaint and brought him in and relayed the history. His told me that in December 2016, he had the same pain and was came to the emergency room, was evaluated, was told everything checked out okay and was sent back home. The day before admission, the patient had spent a lot of his time with other family members celebrating having a special breakfast. He does not drink alcohol. He does take ibuprofen every night, some times more than once a day. He takes this for pain in his feet. The patient himself had no complaints here at all. He could not really remember what was going on the date of admission. The patient was monitored on the telemetry unit. He had 3 troponin levels, all of which were within normal limits. He had a nuclear cardiac stress test. He could not have CT attenuation because he could not raise his arms over his head. There was a possible small to moderate sized fixed defect in the inferolateral wall, which could be related to attenuation artifact in the absence of CT imaging. I note he had 2 EKGs, both of which were unremarkable. My clinical impression was that his pain was more likely to be GI in origin and cardiac. He was asymptomatic in the hospital. He has dementia and is limited in his activity. I told the to try using acetaminophen 500 mg h.s. instead of ibuprofen. I think he would be better off without aspirin as he may well have some acid peptic disease. DISCHARGE MEDICATIONS: Acetaminophen 650 mg every 4 hours p.r.n. [id number]/[facility] #: [id number] [facility]
[2017-07-03 08:13] VITALS: BP 122/70
[2017-07-03] MEDS: CMCS:Epleronone (NF) 25 MG TAB PO SCH (10:29)
[2017-07-03] MEDS: Oseltamivir SUSP 30 MG dose* 30 MG/5 ML ORAL.SYRIN PO SCH (10:30)
[2017-07-03] MEDS: Aspirin EC TAB* 81 MG TAB.EC PO SCH (10:30)
[2017-07-03] MEDS: predniSONE TAB* 20 MG PO SCH (10:30)
[2017-07-03] MEDS: Magnesium Oxide TAB* 400 MG PO SCH (10:30)
--- NOTE | 2017-07-04 10:59 | DS ---
CC: Dr. Jaspal Jerry * DISCHARGE SUMMARY: DATE OF ADMISSION: 07/02/17 DATE OF DISCHARGE: 07/03/17 HISTORY OF PRESENT ILLNESS: This 77-year-old man came with shortness of breath and wheezing. Rest of the history is detailed in the dictated note. He has a history of both COPD, atrial fibrillation, and ischemic cardiomyopathy. His rapid flu test was positive for influenza A. He was felt to be having COPD exacerbation. He was given oseltamivir with dose adjusted for his renal insufficiency. He did not get any other antibiotic agent. He did get prednisone. He did quite well and felt much better by the time of discharge. DISCHARGE DIAGNOSES: 1. Influenza A. 2. Chronic obstructive pulmonary disease exacerbation. 3. Ischemic cardiomyopathy. 4. Renal insufficiency. DISCHARGE MEDICATIONS: 1. Albuterol/ipratropium 2.5/0.5 mg 1 every 4 hours by nebulizer p.r.n. 2. Oseltamivir suspension 30 mg b.i.d., dispensed 6 doses. 3. Prednisone 10 mg to taper from 3 to 0 over 3 days. 4. Aspirin 81 mg daily. 5. Fluocinonide 0.05% topically p.r.n. 6. Albuterol sulfate 2 puffs by inhalation every 4 hours p.r.n. 7. Mometasone 220 mcg daily. 8. Levothyroxine 100 mcg daily. 9. Simvastatin 40 mg daily. 10. Nitroglycerin 0.4 mg every 5 minutes p.r.n. 11. Magnesium oxide 400 mg b.i.d. 12. Digoxin 0.125 mg daily. 13. Candesartan 8 mg daily. 14. Carvedilol 12.5 mg b.i.d. 15. Krill oil 1 daily. 16. Eplerenone 25 mg daily. 17. Furosemide 20 mg daily. 18. Mometasone 50 mcg nasal spray every evening. [id number]/[facility] #: [id number] [facility]
== END 2017-07-03 11:07 | disposition home or self-care (01) ==
LOC: ED 01:59 → MEDTELE 05:01 → INTOOBSV 05:01
PROVIDERS: ADMIT Pediatrics; ATTEND Internal Medicine
DX: J10.1 Influenza due to other identified influenza virus with other respiratory manifestations (principal); J44.1 Chronic obstructive pulmonary disease with (acute) exacerbation; I25.5 Ischemic cardiomyopathy; N28.9 Disorder of kidney and ureter, unspecified; Z79.899 Other long term (current) drug therapy; I48.91 Unspecified atrial fibrillation; R07.9 Chest pain, unspecified; Z88.8 Allergy status to other drugs, medicaments and biological substances; E03.9 Hypothyroidism, unspecified; E78.5 Hyperlipidemia, unspecified; K21.9 Gastro-esophageal reflux disease without esophagitis; Z95.810 Presence of automatic (implantable) cardiac defibrillator; I25.2 Old myocardial infarction; Z95.1 Presence of aortocoronary bypass graft; Z88.1 Allergy status to other antibiotic agents; Z87.891 Personal history of nicotine dependence; Z79.01 Long term (current) use of anticoagulants
CPT/HCPCS: 36415; 36600; 71045; 80048; 80053; 80162; 81003; 81015; 82803; 83605; 83735; 83880; 84145; 84484; 85025; 85610; 85730; 86140; 87040; 87086; 87502; 93005; 94640; 94760; 96365; 96375; 99284; A9270-GY; G0378; J1644; J2930; J3475; J7512

== ENCOUNTER 2019-07-22 14:11 | Inpatient (IN) | payer MEDICARE ==
--- NOTE | 2019-07-22 14:16 | ED ---
GI/ HPI - HPI Summary HPI Summary: 79 year old M presenting to [facility] with a chief complaint of one episode of bright red blood per rectum since 04:15 this morning. Patient reports some diarrhea for the last 3 days, a chronic cough, chronic shortness of breath, weakness, dizziness, and chest congestion. Symptoms aggravated by nothing. Symptoms alleviated by nothing. Patient denies any fever, chills, diaphoresis, erythema of eyes, sore throat, chest pain, abdominal pain, nausea/vomiting, dysuria, hematuria, myalgia, edema, or rash. He has a past history of upper GI bleeds and Stage 4 Congenital Heart Failure. He has had no known sick exposures and has been isolated in his house for the past several weeks. Medication list reviewed. Allergy list reviewed. - History of Current Complaint Stated Complaint: RECTAL BLEED PER EMS Hx Obtained From: Patient Onset/Duration: Started Hours Ago Timing: Constant Associated Signs and Symptoms: Positive: Negative - Erythema (eyes), sore throat , myalgia, edema, rash, diaphoresis, Dizziness, Weakness, Bright Red Blood w/ Stool, Diarrhea, Cough, Other: - Chest congestion, shortness of breath. Negative: Nausea, Vomiting, Fever, Hematuria, Dysuria, Chills, Abdominal Pain, Chest Pain Aggravating Factor(s): Nothing Alleviating Factor(s): Nothing - Additional Pertinent History Primary Care Physician: RICK - Allergy/Home Medications Allergies/Adverse Reactions: Allergies Allergy/AdvReac Type Severity Reaction Status Date / Time bacitracin AdvReac Intermediate Rash Verified 07/02/17 02:13 sotalol AdvReac Mild Headache Verified 07/02/17 02:13 amiodarone AdvReac Headache Verified 07/02/17 02:13 ciprofloxacin [From Cipro] AdvReac Headache Verified 07/02/17 02:13 dofetilide [From Tikosyn] AdvReac Headache Verified 07/02/17 02:13 gabapentin AdvReac See Comment Verified 07/02/17 02:13 hydrocodone AdvReac GI Upset Verified 07/02/17 02:13 irbesartan [From Avapro] AdvReac Unknown Verified 07/02/17 02:13 Reaction Details lisinopril AdvReac Coughing Verified 07/02/17 02:13 polymyxin B AdvReac Rash Verified 07/02/17 02:13 spironolactone AdvReac See Comment Verified 07/02/17 02:13 chocolate Allergy Severe See Comment Uncoded 07/02/17 06:32 Home Medications: Home Medications Albuterol Sulfate [Proair Hfa] 2 puff INH .Q4-6H PRN 01/28/14 [History Confirmed 07/22/19] Aspirin EC TAB* [Ecotrin EC Low Dose 81 MG*] 81 mg PO QAM 01/28/14 [History Confirmed 07/22/19] Candesartan Cilexetil [Atacand] 8 mg PO QPM 01/28/14 [History Confirmed 07/22/19 ] Carvedilol TAB* [Coreg TAB*] 12.5 mg PO BID 01/28/14 [History Confirmed 07/22/19 ] Digoxin TAB* [Lanoxin TAB*] 0.125 mg PO QAM 01/28/14 [History Confirmed 07/22/19 ] Levothyroxine TAB* [Synthroid 25 MCG TAB*] 100 mcg PO QAM 01/28/14 [History Confirmed 07/22/19] Magnesium Oxide TAB* [MagOx 400 TAB*] 400 mg PO BID 01/28/14 [History Confirmed 07/22/19] Simvastatin TAB(NF) [Zocor 20 MG (NF)] 40 mg PO QPM 01/28/14 [History Confirmed 07/22/19] Krill/Om3/Dha/Epa/Om6/Lip/Astx [Krill Oil 1,000 mg Softgel] 1 cap PO QPM [History Confirmed 07/22/19] Albuterol/Ipratropium NEB.JESUS* [Duoneb (Albuterol 2.5 MG/Ipratropium 0.5 MG)] 1 neb INH Q4H PRN #20 neb.soln 07/03/17 [Rx Confirmed 07/22/19] Epleronone (NF) [Inspra (NF)] 25 mg PO QPM 07/22/19 [History Confirmed 07/22/19] Ferrous Sulfate TAB* 325 mg PO DAILY WITH MEAL 07/22/19 [History Confirmed 07/21] Furosemide TAB* [Lasix TAB*] 20 mg PO EVERY OTHER DAY 07/22/19 [History Confirmed 07/22/19] Guaifenesin/Dextromethorphan [Mucinex Dm ER 600-30 mg Tablet] 1 each PO BID [History Confirmed 07/22/19] Mometasone 220 MCG MDI * [Asmanex 220 MCG MDI *] 1 puff INH BID 07/22/19 [ History Confirmed 07/22/19] Mometasone NASAL (NF) [Nasonex (NF)] 2 spray BOTH NARES BEDTIME PRN 07/22/19 [ History Confirmed 07/22/19] Omeprazole CAP (NF) [Prilosec CAP* 20 MG] 20 mg PO QAM 07/22/19 [History Confirmed 07/22/19] Triamcinolone 0.5% CREAM(NF) [Kenalog Cream 0.5%(NF)] 1 applic TOPICAL BID PRN 07/22/19 [History Confirmed 07/22/19] PMH/Surg Hx/FS Hx/Imm Hx Endocrine/Hematology History: Reports: Hx Thyroid Disease Denies: Hx Diabetes, Hx Systemic Lupus Erythematosus Cardiovascular History: Reports: Hx Auto Implanted Cardiovert Defib, Hx Congestive Heart Failure, Hx Coronary Artery Disease, Hx Hypertension, Hx Pacemaker/ICD, Other Cardiovascular Problems/Disorders - AAA, CABG Respiratory History: Reports: Hx Asthma Denies: Hx Chronic Obstructive Pulmonary Disease (COPD) GI History: Reports: Hx Gastroesophageal Reflux Disease, Hx Gastrointestinal Bleed, Hx Ulcer History: Denies: Hx Renal Disease Musculoskeletal History: Reports: Hx Arthritis - LEFT HIP Sensory History: Reports: Hx Contacts or Glasses Denies: Hx Cataracts, Hx Hearing Aid Opthamlomology History: Reports: Hx Contacts or Glasses Denies: Hx Cataracts Neurological History: Reports: Hx Migraine - MEDICATION RXN - Cancer History Hx Chemotherapy: No - Surgical History Surgical History: Yes Surgery Procedure, Year, and Place: ICD PLACEMENT, LT TOTAL HIP, KNEE, CABG, TONSILLECTOMY, APPENDECTOMY, CHOLECYSTECTOMY, VOCAL CHORD SURGERY Hx Anesthesia Reactions: No Infectious Disease History: Denies: Hx Hepatitis, Hx Human Immunodeficiency Virus (HIV) - Family History Known Family History: Positive: Cardiac Disease, Hypertension - Social History Alcohol Use: Rare Hx Substance Use: No Substance Use Type: Reports: None Hx Tobacco Use: Yes Smoking Status (MU): Former Smoker Type: Cigarettes, Pipe Have You Smoked in the Last Year: No Review of Systems Negative: Fever, Chills, Skin Diaphoresis Negative: Erythema Negative: Sore Throat Positive: Other - Chest congestion. Negative: Chest Pain Positive: Shortness Of Breath, Cough Positive: Diarrhea, Other - Rectal bleeding. Negative: Abdominal Pain, Vomiting , Nausea Negative: dysuria, hematuria Negative: Myalgia, Edema Negative: Rash Neurological/Mental Status: Other - Dizziness Positive: Weakness All Other Systems Reviewed And Are Negative: Yes Physical Exam - Summary Physical Exam Summary: Constitutional: Well-developed, Well-nourished, Alert. (-) Distressed Skin: Warm, Dry HENT: Normocephalic; Atraumatic Eyes: Conjunctiva normal Neck: Musculoskeletal ROM normal neck. (-) JVD, (-) Stridor, (-) Tracheal deviation Cardio: Rhythm regular, rate normal, Heart sounds normal; Intact distal pulses; The pedal pulses are 2+ and symmetric. Radial pulses are 2+ and symmetric. (-) Murmur Pulmonary/Chest wall: Effort normal. (-) Respiratory distress, (-) Wheezes, (-) Rales Abd: Soft, (-) tenderness, (-) Distension, (-) Guarding, (-) Rebound Rectal: Claribel blood Musculoskeletal: (-) Edema Lymph: (-) Cervical adenopathy Neuro: Alert, Oriented x3 Psych: Mood and affect Normal Triage Information Reviewed: Yes Vital Signs Reviewed: Yes Procedures - Sedation Patient Received Moderate/Deep Sedation with Procedure: No Diagnostics - Laboratory Result Diagrams: 07/22/19 15:00 07/22/19 15:00 Lab Statement: Any lab studies that have been ordered have been reviewed, and results considered in the medical decision making process. - EKG 15:09 Cardiac Rate: Other Rate - 70 BPM Summary of EKG Findings: Ventricular-paced rhythm. ED physician has reviewed and interpreted this EKG. Re-Evaluation - Re-Evaluation First Eval Re-Evaluation Time: 15:45 Comment: Discussed with GI who will come to evaluate the patient. GIGU Course/Dx - Course Course Of Treatment: 79 year old M presenting to [facility] with a chief complaint of one episode of bright red blood per rectum since 04:15 this morning. Patient reports some diarrhea for the last 3 days, a chronic cough, chronic shortness of breath, weakness, dizziness, and chest congestion. Physical exam findings: claribel blood on rectal exam. An EKG reveals Ventricular-paced rhythm rate of 70 BPM. Laboratory results with no significant abnormalities except for an RBC of 2.56, Hgb of 7.8, Hct of 24, RDW of 20, absolute monos of 1.0, INR of 1.18, BUN of 45, creatinine of 1.40, BUN/creatinine ratio of 32.1, glucose of 104, troponin of 0.05. In the ED course, the patient was given Protonix. We discussed patient care with Dr. Lagos at 16:09 who accepts the patient for admission. Patient will be admitted. The patient is agreeable with this plan. - Diagnoses Provider Diagnoses: Lower GI bleed, Symptomatic anemia - Physician Notifications Discussed Care Of Patient With: Disha Lgaos Time Discussed With Above Provider: 16:09 Instructed by Provider To: Other - Discussed with Dr. Lagos who accepts the patient for admission. - Critical Care Time Critical Care Time: 30-74 min - 45 minutes Critical Care Statement: Critical care time is provided exclusive of any time spent performing procedures. Discharge ED - Sign-Out/Discharge Documenting (check all that apply): Patient Departure - Discharge Plan Condition: Stable Disposition: ADMITTED TO [facility] Referrals: Kimmie DENIS,Red Swanson [Primary Care Provider] - - Attestation Statements Document Initiated by Scribe: Yes Documenting Scribe: Sarai Alvarado Provider For Whom Scribe is Documenting (Include Credential): Frantz Mejia MD Scribe Attestation: Sarai Valdez, scribed for Frantz Mejia MD on 07/22/19 at 0765. Status of Scribe Document: Ready
[2019-07-22 15:20] LABS: ABS Basophils 0.1 10^3/ul (0-0.2); ABS Eosinophils 0.2 10^3/ul (0-0.6); ABS Lymphocytes 1.2 10^3/ul (1.0-4.8); ABS Neutrophils 4.8 10^3/ul (1.5-7.7); Eosinophil % 2.4 %; Hematocrit 24 % (42-52); Hemoglobin 7.8 g/dL (14.0-18.0); Lymphocyte % 16.2 %; Mean Corpuscular HGB Conc 33 g/dL (31-36); Mean Corpuscular Hemoglobin 31 pg (27-31); Mean Corpuscular Volume 93 fL (80-94); Mean Platelet Volume 9.3 fL (7.4-10.4); Platelet Count 151 10^3/uL (150-450); Red Blood Count 2.56 10^6 /uL (4.18-5.48); Red Cell Distribution Width 20 % (10-15); White Blood Count 7.3 10^3/uL (3.5-10.8)
[2019-07-22 15:22] LABS: Urine Appearance Clear; Urine Bilirubin Negative (Negative); Urine Blood Negative (Negative); Urine Color Yellow; Urine Glucose Negative (Negative); Urine Ketones Negative (Negative); Urine Nitrite Negative (Negative); Urine Protein Negative (Negative); Urine Specific Gravity 1.014 (1.010-1.030); Urine Urobilinogen Negative (Negative)
[2019-07-22 15:31] LABS: Activated Partial Thrombo Time 33.7 seconds (26.0-38.0); INR 1.18 (0.82-1.09)
[2019-07-22 15:35] LABS: ALT 18 U/L (7-52); AST 28 U/L (13-39); Albumin 3.6 g/dL (3.2-5.2); Albumin/Globulin Ratio 1.1 (1-3); Alkaline Phosphatase 73 U/L (34-104); Anion Gap 3 mmol/L (2-11); BUN/Creatinine Ratio 32.1 (8-20); Blood Urea Nitrogen 45 mg/dL (6-24); CO2 Carbon Dioxide 26 mmol/L (22-32); Calcium 8.7 mg/dL (8.6-10.3); Chloride 107 mmol/L (101-111); EGFR African American 59.5 (>60); EGFR Non-African American 49.1 (>60); Globulin 3.3 g/dL (2-4); Glucose 104 mg/dL (70-100); Magnesium 2.3 mg/dL (1.9-2.7); Potassium 4.9 mmol/L (3.5-5.0); Sodium 136 mmol/L (135-145); Total Protein 6.9 g/dL (6.4-8.9)
[2019-07-22 15:38] LABS: Troponin I 0.05 ng/mL (<0.03)
[2019-07-22] MEDS ORDERED: Pantoprazole IV* 40 MG IV ONE (15:40)
[2019-07-22] MEDS ORDERED: Pantoprazole* 80 mg IN NS 80 MG/250 ML BAG IV ONE (15:40)
[2019-07-22 16:02] LABS: TSH (Thyroid Stimulating Horm) 4.33 mcIU/mL (0.34-5.60)
[2019-07-22] MEDS ORDERED: Acetaminophen TAB* 325 MG PO PRN (18:04)
[2019-07-22] MEDS ORDERED: Albuterol/Ipratropium NEB.SOL* (2.5/0.5 MG) 3 ML NEB.SOLN INH PRN (18:11)
--- NOTE | 2019-07-22 18:40 | CONS ---
CC: Dr. Mejia* GASTROENTEROLOGY CONSULT REPORT: DATE OF CONSULT: 07/22/19 REQUESTING PROVIDER: ED, Dr. Mejia. LOCATION: The patient was seen in the ER. REASON FOR CONSULT: Concern for GI bleeding. HISTORY OF PRESENT ILLNESS: Mr. 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 Mr. Romero reports 1-/2 to 2 weeks of melena. He describes soft, black stools up to 4 times a day beginning on 07/12/19. Over the last few days, he has noticed more watery diarrhea. The stool has remained black until this morning. This morning, he noticed red blood in the toilet bowl mixed with the diarrhea. He had another episode at noon with a smaller amount of stool and red blood. No bowel movement since this time. Has complained of some lightheadedness and dizziness. On aspirin only. Not on anticoagulation. Presented to the ED for evaluation. On arrival to the ED, the patient was noted to have stable vital signs without hypertension. Labs demonstrated a hemoglobin of 7.8 and hematocrit of 24. This is in comparison to hemoglobin of 10.8 on 07/07/19. Labs on admission also notable for an elevated troponin to 0.05. The patient was noted to be coughing in the ED, so COVID testing was performed. On chart review, it appeared Mr. Romero had an episode of upper GI bleed in the past. He was hospitalized in 2013 for GI bleeding and anemia. There was gastric AVM noted, which was not cauterized given therapeutic Coumadin level. Coumadin was discontinued subsequently. I do not see an EGD since the 2014 ER visit. No recent colonoscopy on record. PAST MEDICAL HISTORY: 1. COPD. 2. Ischemic cardiomyopathy with systolic dysfunction. 3. Coronary artery disease with an MS. 4. AAA. 5. ICD and pacer placement. 6. Hypertension. 7. GERD. 8. History of GI bleed attributed to a gastric AVM. 9. Atrial fibrillation. 10. Osteoarthritis. 11. CKD. 12. Hypothyroidism. 13. Hyperlipidemia. PAST SURGICAL HISTORY: 1. ICD/pacemaker placement. 2. Hip replacement. 3. Knee surgery. 4. CABG. 5. Tonsillectomy. 6. Appendectomy. 7. Cholecystectomy. 8. Vocal cord surgery. HOME MEDICATIONS: 1. Albuterol inhaler every 4 to 6 hours as needed. 2. Aspirin 81 mg daily. 3. Candesartan 8 mg every evening. 4. Carvedilol 12.5 mg twice daily. 5. Digoxin 0.125 every morning. 6. Levothyroxine 100 mcg every morning. 7. Magnesium oxide 400 mg twice daily. 8. Simvastatin 40 mg every evening. 9. DuoNeb nebulizer every 4 hours as needed. 10. Eplerenone 25 mg every evening. 11. Ferrous sulfate 325 mg daily. 12. Furosemide 20 mg every other day. 13. Guaifenesin/dextromethorphan b.i.d. 14. Mometasone 220 mcg twice daily. 15. Mometasone nasal at bedtime as needed. 16. Omeprazole 20 mg daily. 17. Triamcinolone cream twice daily as needed. ALLERGIES: BACITRACIN, SOTALOL, AMIODARONE, CIPROFLOXACIN, DOFETILIDE, GABAPENTIN, HYDROCODONE, IRBESARTAN, LISINOPRIL, POLYMYXIN, SPIRONOLACTONE, and CHOCOLATE. FAMILY HISTORY: No known GI or liver disease. SOCIAL HISTORY: The patient lives with his in [place]. Former smoker. History of heavy alcohol use, although sober. No drug use reported. REVIEW OF SYSTEMS: The patient denies any chest pain or shortness of breath. He reports chronic cough, which he has attributed to his heart failure. Denies any fevers or chills. Denies any nausea, vomiting, dysphagia, abdominal pain, or unintentional weight loss. No nonsteroidal use. Complete review of systems otherwise negative. PHYSICAL EXAM: Vital Signs: Afebrile, heart rate 70, blood pressure 116/53, respiratory rate 16, 100% on room air. General: Elderly appearing gentleman, in no acute distress. HEENT: Wearing a mask, not removed due to COVID rule out. Cardiovascular: Paced rhythm with occasional irregular beats. Pulmonary: Breathing comfortably. No coughing during exam. No dyspnea with conversation. Anterior lung durán clear. Abdomen: Soft, nontender, nondistended. Rectal: Small amount of dark, maroon stool seen on anus. MSK: Mild edema. Neuro: A and O x3. DIAGNOSTIC STUDIES/LAB DATA: Labs reviewed. White count 7.3, hemoglobin 7.8, hematocrit 24, MCV 93, INR 1.18, BUN 45 which is a bit above his baseline, creatinine 1.4. LFTs normal. Troponin 0.05. TSH 4.33. Imaging: No recent imaging studies. EKG demonstrated a ventricular paced rhythm without any acute ST elevation. Endoscopy: EGD report from 2013 reviewed and summarized in HPI. IMPRESSION AND RECOMMENDATIONS: Mr. 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 Mr. Romero describes a week and a half of melena. He has had some looser stools over the last few days. Noticed some red blood in the toilet bowl this morning. Reassuringly, he is hemodynamically stable without hypertension. Labs demonstrate an acute on chronic anemia with a hemoglobin of 7.8. Troponin level very minimally elevated at 0.05. BUN is slightly up compared to baseline. Rectal exam demonstrated dark red blood. Presentation consistent with gastrointestinal bleeding. Given his description of predominantly melenic stool as well as the quite dark stool on exam today, I favor an upper gastrointestinal or small bowel source of bleeding. It is possible that the bright red blood seen earlier this morning was hemorrhoidal related to the diarrhea. Of note, the patient is being ruled out for COVID given cough. 1. Recommend transfusion of 1 unit given hemoglobin less than 8 with minimally elevated troponin. Would aim for a hemoglobin goal of 8. 2. Continue to monitor CBC every 6 to 8 hours. 3. Assuming the patient remains hemodynamically stable this evening, then sips of water or light clears are okay. Will place the patient n.p.o. after midnight. If any concern for instability, then I would immediately place the patient n.p.o.. 4. We will plan for EGD tomorrow mid morning most likely. Will need to be performed in a negative pressure room as the patient is COVID rule out. We will speak with OR staff about this accommodation, although he should be able to be performed with moderate sedation. 5. Recommend IV PPI b.i.d. Thank you very much for this consult. Please contact GI with any acute clinical change. [id number]/[facility] #: [id number] DAVID
[2019-07-22] MEDS ORDERED: Albuterol HFA INHALER* 8 gm MDI INH PRN (19:42)
[2019-07-22] MEDS: Mometasone 220 MCG MDI INH SCH (19:52)
[2019-07-22] MEDS: Pantoprazole IV* 40 MG IV SCH (21:12)
[2019-07-22] MEDS: Atorvastatin* 20 MG TAB PO SCH (21:12)
[2019-07-22 21:23] LABS: Hematocrit 24 % (42-52); Hemoglobin 7.8 g/dL (14.0-18.0)
[2019-07-22] MEDS ORDERED: Furosemide IV* 10 MG/ML 2 ML VIAL (20 MG) IV SLOW PU ONE (21:42)
--- NOTE | 2019-07-22 21:42 | HP ---
CC: Dr. Day; Dr. Burks* HISTORY AND PHYSICAL: DATE OF ADMISSION: 07/22/19 PROVIDER: Chrissy Dumont NP PRIMARY CARE PROVIDER: Dr. Burks. ATTENDING PHYSICIAN WHILE IN THE HOSPITAL: Dr. Jodi Xiong* (dictated by Chrissy Dumont NP). CHIEF COMPLAINT: Bright red blood from the rectum. HISTORY OF PRESENT ILLNESS: Mr. Romero is a 79-year-old male with the past medical history significant for atrial fibrillation, history of congestive heart failure with low ejection fraction of 25%, hypothyroid, dyslipidemia, ischemic cardiomyopathy, coronary artery disease, GERD, history of GI bleed, who presented to the emergency room with the complaints of weakness and lightheadedness times a week. The patient reports he has also had dark stools. He reports that this morning approximately at 4 a.m. he had bright red blood in the toilet. He reports that he has a history of an AVM in the past and a GI bleed. Due to the finding of bright red blood, he presented to the emergency room for further evaluation. While in the emergency room, he had routine lab work drawn. He was found to have a hemoglobin of 7.8 and hematocrit of 24, mildly elevated troponin of 0.05. Due to these findings, Hospital Medicine was asked to see and evaluate him for admission. PAST MEDICAL HISTORY: Significant for: 1. Atrial fibrillation. 2. Congestive heart failure. 3. Low ejection fraction of 20% to 25%. 4. Hypothyroid. 5. Dyslipidemia. 6. Ischemic cardiomyopathy. 7. Coronary artery disease. 8. GERD. 9. AAA. 10. ICD placement. 11. History of GI bleed with AVM. 12. COPD. PAST SURGICAL HISTORY: 1. CABG. 2. Left hip replacement. 3. ICD placement. HOME MEDICATIONS: Include: 1. Furosemide 20 mg p.o. daily. 2. Omeprazole 20 mg p.o. b.i.d. 3. Asmanex 1 puff b.i.d. 4. Nasonex 2 sprays both nares p.r.n. 5. Guaifenesin. 6. Mucinex 1 tablet p.o. b.i.d. 7. Albuterol nebulizer 1 neb q.4 hours p.r.n. 8. Albuterol HFA inhaler 2 puffs q.4 to 6 hours as needed for shortness of breath. 9. Triamcinolone 0.5% cream topically b.i.d.. 10. Ferrous sulfate 325 mg p.o. with meals. 11. Levothyroxine 100 mcg p.o. daily. 12. Simvastatin 40 mg p.o. q.p.m. 13. Krill oil 1 cap p.o. q.p.m. 14. Aspirin 81 mg p.o. daily. 15. Magnesium oxide 400 mg p.o. b.i.d. 16. Inspra 25 mg p.o. q.p.m.. 17. Digoxin 0.125 mg p.o. q.a.m. 18. Atacand 8 mg p.o. q.p.m. 19. Carvedilol 12.5 mg p.o. b.i.d. ALLERGIES: BACITRACIN, SOTALOL, AMIODARONE, CIPRO, TIKOSYN, GABAPENTIN, HYDROCODONE, IRBESARTAN, LISINOPRIL, POLYMYXIN B, SPIRONOLACTONE and CHOCOLATE. FAMILY HISTORY: Father from a stroke. Mother was from leukemia. SOCIAL HISTORY: The patient lives with his , Cindy. He is independent. He quit smoking in 1995. He denies any alcohol or illicit drug use. His surrogate decision maker in the event he is unable to make his own decisions is his . He is a DNR, but would like a trial of intubation. REVIEW OF SYSTEMS: He denies any fever, chills, unintended weight loss, chest pain or edema. No cough, hemoptysis, or shortness of breath, worse than baseline. He says he has a chronic cough and chronic shortness of breath. He does report some weakness and lightheadedness times a week with dark stools and bright red blood this morning with a bowel movement. He denies any gross hematuria, dysuria, focal weakness, sensory loss, visual complaints, dysphagia, arthralgias, myalgias, rashes, lesions, open sores. PHYSICAL EXAMINATION GENERAL: At this time, Mr. Romero is alert and oriented. Resting on the stretcher in the emergency room. His color is pale. His conjunctivae are pale. VITAL SIGNS: Blood pressure 125/58, heart rate 70 paced on the monitor, respirations are 18, O2 saturation 100%, temperature was 97.5. HEENT: Head is atraumatic, normocephalic. Eyes, EOMs are intact. Sclerae anicteric and not pale. Oral mucosa is moist. NECK: Supple. LUNGS: Clear to auscultation bilaterally. There are no wheezes, rales, or rhonchi. CARDIAC: S1, S2. No rubs or gallops. ABDOMEN: Soft and nontender. Bowel sounds are active x4. He is noted to have melena in the bedside commode. EXTREMITIES: He is able to to move all 4 extremities. There is no clubbing or cyanosis. No peripheral edema. NEUROLOGIC: He is awake, alert and oriented x3. Speech is clear. Thought process is intact. SKIN: Intact. DIAGNOSTIC STUDIES/LAB DATA: WBCs are 7.3, RBCs 2.56, hemoglobin 7.8, hematocrit is 24, platelet count is 151. INR of 1.18. APTT was 33.7. Sodium 136, potassium 4.9, chloride 107, carbon dioxide is 26, anion gap is 3, BUN was 45, creatinine 1.40 which is at his baseline, glucose is 104, lactic acid 1.2, calcium 8.7, magnesium 2.3. Total bilirubin 0.70, ASTs were 28, ALTs were 18, alkaline phosphatase was 73. Troponin was 0.05. TSH was 4.33. Urine was within normal limits. No abnormalities. He had an electrocardiogram, which showed a paced rhythm at a rate of 70. ASSESSMENT AND PLAN: Mr. Romero is a 79-year-old male with a past medical history significant for atrial fibrillation, not on anticoagulation; congestive heart failure; ischemic cardiomyopathy with an ejection fraction of 20% to 25%; hypothyroid; dyslipidemia; coronary artery disease; ICD pacemaker placement; history of gastrointestinal bleed with an arteriovenous malformation, who presented to the emergency room with complaints of bright red blood from the rectum, dark stools times a week, found to have a gastrointestinal bleed. He will be admitted under observation for, 1. Gastrointestinal bleed. The patient does have melena noted in the emergency room with a positive guaiac stool. He was seen in consultation by GI , Dr. Chriss Reese who will do an upper endoscopy tomorrow. He will be placed on Protonix 40 mg b.i.d. IV, clear liquid diet, and then n.p.o. After midnight. I will transfuse him 1 unit of blood. He will have an H and H q.6 hours. We will monitor him on telemetry. Should he become hemodynamically unstable, we will contact GI and transfer him to the ICU. At this time, the patient is hemodynamically stable. 2. Cough and shortness of breath. The patient has a chronic cough and shortness of breath. He was tested for COVID in the emergency room. He will be placed on PUI isolation until his COVID results are back. 3. Atrial fibrillation. He will continue on carvedilol, digoxin as previously prescribed. 4. Hypertension. He will continue on Atacand as previously prescribed. 5. Hyperlipidemia. He will continue on Zocor 40 mg starting tomorrow. 6. Hypothyroid. He will continue on levothyroxine 100 mcg p.o. daily. 7. Chronic obstructive pulmonary disease. He can have his albuterol inhaler and Asmanex inhaler as needed for shortness of breath. 8. FEN: He can have clear liquids. He will be n.p.o. after midnight. 9. Code status: He is DNR. 4. DVT prophylaxis: I will place him on SCDs as chemical DVT prophylaxis is contraindicated as the patient is currently having a GI bleed. TIME SPENT: Time spent on this admission was 60 minutes. Greater than half that time was spent at the bedside reviewing events leading thus far to his hospitalization, performing physical exam and reviewing my plan of care. I have discussed with my attending Dr. Jodi Xiong, she is in agreement with my plan. CHRISSY DUMONT, TERESSA [id number]/[facility] #: [id number] DAVID
[2019-07-22 21:48] LABS: Troponin I 0.04 ng/mL (<0.03)
[2019-07-23] MEDS ORDERED: Pantoprazole IV* 40 MG IV SCH (04:00)
[2019-07-23 06:49] LABS: ABS Basophils 0.1 10^3/ul (0-0.2); ABS Eosinophils 0.2 10^3/ul (0-0.6); ABS Lymphocytes 0.9 10^3/ul (1.0-4.8); ABS Monocytes 0.7 10^3/ul (0-0.8); ABS Neutrophils 3.8 10^3/ul (1.5-7.7); Eosinophil % 3.4 %; Hematocrit 24 % (42-52); Hemoglobin 8.1 g/dL (14.0-18.0); Lymphocyte % 15.5 %; Mean Corpuscular HGB Conc 33 g/dL (31-36); Mean Corpuscular Hemoglobin 31 pg (27-31); Mean Corpuscular Volume 92 fL (80-94); Mean Platelet Volume 9.4 fL (7.4-10.4); Platelet Count 138 10^3/uL (150-450); Red Blood Count 2.63 10^6 /uL (4.18-5.48); Red Cell Distribution Width 18 % (10-15); White Blood Count 5.6 10^3/uL (3.5-10.8)
[2019-07-23 07:02] LABS: BUN/Creatinine Ratio 30.9 (8-20); Calcium 8.5 mg/dL (8.6-10.3); EGFR African American 61.5 (>60); EGFR Non-African American 50.8 (>60); Potassium 4.4 mmol/L (3.5-5.0)
[2019-07-23] MEDS: Aspirin EC TAB* 81 MG TAB.EC PO SCH (08:14)
[2019-07-23] MEDS: Digoxin TAB* 0.125 MG PO SCH (08:14)
[2019-07-23] MEDS: Pantoprazole IV* 40 MG IV SCH ×2 (08:16→19:52)
[2019-07-23] MEDS: Mometasone 220 MCG MDI INH SCH ×2 (08:17→19:21)
--- NOTE | 2019-07-23 15:49 | PN ---
Progress Note - Progress Note Date of Service: 07/23/19 Note: GI Follow up Note Patient seen and examined. No BM in over 16 hours. Last evening had one slightly dark stool. No further overt hematochezia. NO abdominal pain VS: 127/57, P-70, R-16, T-97.8 Gen: alert and oriented x3, NAD HEENT: AT/NC, perrla, eomi, +jvp CVS: RRR s1s2 Resp: diminished at base Abd: soft, nt, nd, bs+ ext: no cyanosis, no clubbing Psych: appropriate mood/affect Labs: Hgb 7.8->7.8->8.1 With 1 unit between 1st 2 values Impression Acute blood loss anemia History of AVMs CAD COVID R/O with PCR pending Rec: Hgb stable today. Does need EGD but timing is non urgent today with no BM or claribel bleeding. Continue with PPI therapy. Closely monitor h/h, transfuse prn > 7. Contact GI service if change in clinical status. If COVID negative on 07/23 can consider EGD. If stable and no overt blood loss would be reasonable to schedule as outpatient in 3-4 weeks. Suspect this is an AVM that opened up. Reece Biswasrdan DO 07/23/19 [id number]
[2019-07-23] MEDS ORDERED: CMCS: Epleronone (NF) 25 MG TAB PO SCH (18:00)
--- NOTE | 2019-07-23 19:28 | PN ---
Subjective Date of Service: 07/23/19 Interval History: pt is alert and oriented x 3. Reports that he is feeling great since having blood transfusion. pt reports too that he has been passing gas today and has not had a BM since being in ER. pt denies any chest pain, SOB, dizziness. Family History: Unchanged from Admission Social History: Unchanged from Admission Past Medical History: Unchanged from Admission Objective Active Medications: Acetaminophen (Tylenol Tab*) 650 mg PO Q6H PRN PRN Reason: MILD PAIN or TEMP > 100.4 Albuterol (Ventolin Hfa Inhaler*) 2 puff INH Q4H PRN PRN Reason: SHORTNESS OF BREATH Aspirin (Aspirin Ec Tab*) 81 mg PO QAM [facility] Last Admin: 07/23/19 08:14 Dose: 81 mg Atorvastatin Calcium (Lipitor*) 20 mg PO 2100 [facility] Last Admin: 07/22/19 21:12 Dose: 20 mg Digoxin (Lanoxin Tab*) 0.125 mg PO QAM [facility] Last Admin: 07/23/19 08:14 Dose: 0.125 mg Eplerenone (Inspra (Nf)) 25 mg PO QPM [facility]; Protocol Last Admin: 07/23/19 17:21 Dose: 25 mg Mometasone Furoate (Asmanex 220 Mcg Mdi *) 1 puff INH BID [facility]; Protocol Last Admin: 07/23/19 19:21 Dose: 1 puff Pantoprazole Sodium (Protonix Iv*) 40 mg IV Q12H [facility] Last Admin: 07/23/19 08:16 Dose: 40 mg Vital Signs - 8 hr 07/23/19 14:07 Temperature 96.8 F Pulse Rate 70 Respiratory 16 Rate Blood Pressure 127/57 (mmHg) O2 Sat by Pulse 99 Oximetry Oxygen Devices in Use Now: None Appearance: Elderly gentleman pale complexion sitting up in bed watching TV. Does not appear to be in any distress. Eyes: No Scleral Icterus, PERRLA Ears/Nose/Mouth/Throat: NL Teeth, Lips, Gums, Clear Oropharnyx, Mucous Membranes Moist Neck: NL Appearance and Movements; NL JVP, Trachea Midline Respiratory: Symmetrical Chest Expansion and Respiratory Effort, Clear to Auscultation Cardiovascular: NL Sounds; No Murmurs; No JVD, RRR, No Edema Abdominal: NL Sounds; No Tenderness; No Distention, No Hepatosplenomegaly Skin: No Rash or Ulcers, No Nodules or Sclerosis Neurological: Alert and Oriented x 3, NL Sensation, NL Muscle Strength and Tone Result Diagrams: 07/23/19 06:34 07/23/19 06:34 Microbiology and Other Data: Microbiology 07/22/19 16:30 Stool Occult Blood (FREDERICK) - Final Stool Assess/Plan/Problems-Billing Assessment: 79 yom patient with medical hx significant for Afib, CHF with EF 20-25%, ischemic cardiomyopathy CAD, ICD, Dyslipidemia, AAA, GIB w/AVM, Hypothyroid, and COPD presents to ED with complaints of weakness, lightheadedness, and bright red blood in stool. - Patient Problems (1) GI bleed Current Visit: Yes Comment: -Likely AVM opened up -No active bleeding presently, H+H stable will recheck this evening -One unit of blood transfused in ED -If H&H <7 will transfuse another unit -Per GI-EGD is necessary but may be completed OP in 3-4 weeks if H&H remains stable and no overt bleeding. If COVID test back negative 07/23 may possibly have EGD then. If patient starts bleeding again notify GI. -Continue PPI while admitted (2) Cough Current Visit: Yes Comment: -Pt reports chronic cough and SOB. Pt was tested for COVID on arrival will be PUI until R/O -Has been Afebrile since arrival (3) COPD (chronic obstructive pulmonary disease) Current Visit: Yes Comment: -Albuterol and asmanex as needed for SOB (4) Afib Current Visit: No Comment: -Continue carvedilol, digoxin (5) Dyslipidemia Current Visit: No Comment: -replace zocor with Lipitor (6) Hypothyroid Current Visit: No Comment: Continue levothyroxine. (7) DVT prophylaxis Current Visit: Yes Comment: -SCD's (8) DNR (do not resuscitate) Current Visit: Yes Status and Disposition: Guarded
[2019-07-23] MEDS: Atorvastatin* 20 MG TAB PO SCH (19:52)
[2019-07-23 20:26] LABS: Hematocrit 25 % (42-52); Hemoglobin 8.4 g/dL (14.0-18.0)
[2019-07-24] MEDS: Mometasone 220 MCG MDI INH SCH (07:05)
[2019-07-24 07:40] LABS: ABS Basophils 0.1 10^3/ul (0-0.2); ABS Eosinophils 0.2 10^3/ul (0-0.6); ABS Lymphocytes 0.9 10^3/ul (1.0-4.8); ABS Monocytes 0.7 10^3/ul (0-0.8); ABS Neutrophils 4.4 10^3/ul (1.5-7.7); Eosinophil % 3.6 %; Hematocrit 25 % (42-52); Hemoglobin 8.5 g/dL (14.0-18.0); Lymphocyte % 14.4 %; Mean Corpuscular HGB Conc 34 g/dL (31-36); Mean Corpuscular Hemoglobin 32 pg (27-31); Mean Corpuscular Volume 93 fL (80-94); Mean Platelet Volume 9.1 fL (7.4-10.4); Platelet Count 148 10^3/uL (150-450); Red Blood Count 2.71 10^6 /uL (4.18-5.48); Red Cell Distribution Width 19 % (10-15); White Blood Count 6.3 10^3/uL (3.5-10.8)
[2019-07-24 07:51] LABS: BUN/Creatinine Ratio 26.5 (8-20); Calcium 8.8 mg/dL (8.6-10.3); EGFR African American 61.5 (>60); EGFR Non-African American 50.8 (>60); Potassium 4.4 mmol/L (3.5-5.0)
[2019-07-24] MEDS: Digoxin TAB* 0.125 MG PO SCH (08:10)
[2019-07-24] MEDS: Pantoprazole IV* 40 MG IV SCH (08:10)
[2019-07-24] MEDS: Aspirin EC TAB* 81 MG TAB.EC PO SCH (08:10)
[2019-07-24] MEDS ORDERED: Midazolam* 1 MG/ML 10 ML VIAL (10 MG) ONE (09:53)
[2019-07-24] MEDS ORDERED: fentaNYL* 50 MCG/ML 2 ML VIAL (100 MCG VIAL) ONE (09:53)
--- NOTE | 2019-07-24 10:36 | PN ---
Progress Note - Progress Note Date of Service: 07/24/19 Note: Procedure note: EGD 25mg IV fent, 4 mg IV versed E--->nml, no EE G---NML, no avm, bx for MIKE D--->multiple very small petechiae, >30 (est), nonbleeding NO active bleeding Duodenal petechiae----->nonbleeding, appears he was on Omeprazole 20mg q day at home, would recommend 40mg bid x 4 wks, repeat CBC at that time to confirm coming up ok to eat, can discharge later from GI standpoint, office visit (telemed) with Dr Owens in 2 weeks Fabrizio Owens MD [facility]
--- NOTE | 2019-07-24 11:31 | PRO ---
PROCEDURE REPORT: DATE OF PROCEDURE: 07/24/19 PROCEDURE: EGD. INDICATION: Melena. REFERRING PHYSICIAN: None. MEDICATIONS GIVEN: 1. 25 mcg IV fentanyl. 2. 4 mg IV Versed. DESCRIPTION OF PROCEDURE: After the EGD procedure, including the risks, benefits, and alternatives, not limited to perforation, surgery, and/or were explained to Mr. Romero, written consent was th en obtained, IV medication was given, and a bite-block was placed between the teeth. An Olympus telly roscope was then inserted into the patient's mouth, advanced down the esophagus, into the stomach, in to the distal duodenum. In the esophagus at the GE junction, the Z-line was intact. No erosive esop hagitis, stricture or ring was seen. The scope was advanced through the GE junction into the body of the stomach. Retroflex views unremarkable. Forward view also was unremarkable. Very careful and th orough evaluation did take place and no AVMs were seen. Biopsy was obtained for H. pylori. The scop e was advanced through widely patent pylorus into the duodenal bulb, into the distal duodenum. There were multiple very small petechiae throughout the entirety of the duodenum, at least 30, most likely more, none of these were bleeding, none of them were large enough to be considered an AVM. Many of them were extremely small. I really did not feel that I could properly cauterize or argon any of the se, again none were large at all. None were bleeding. The scope was then withdrawn from the patient . He tolerated the procedure well and was returned to the hospital room in stable condition. IMPRESSION: 1. Complete upper endoscopy into the distal duodenum with biopsies. 2. Biopsy for MIKE. 3. Multiple duodenal petechiae, potentially a culprit for his anemia. He very well could have other petechiae further down in his small bowel. These petechiae were numerous, very small, unable to cau terize any or all of them. I do think that we need to double up on his proton pump inhibitor therapy . We will continue with his aspirin given his cardiac history. I would like to let him eat later on today if he tolerates well. He can probably be discharged later on today. I would like him to have a repeat CBC in 3 to 4 weeks for now and he should make a telemedicine visit with Dr. Owens in [place] roximately 2 weeks from now. [id number]/[facility] #: [id number]
[2019-07-24 14:34] VITALS: BP 101/45
--- NOTE | 2019-07-25 09:35 | DS ---
Amended report to enter cosigning physician. CC: Dr. Owens; Dr. Haven Burks* DISCHARGE SUMMARY: DATE OF ADMISSION: 07/22/19 DATE OF DISCHARGE: 07/24/19 PROVIDER: Haven Odonnell NP PRIMARY CARE PROVIDER: Dr. Haven Burks. ATTENDING PHYSICIAN WHILE IN THE HOSPITAL: Dr. Disha Lagos* (dictated by Haven Odonnell NP). PRIMARY DIAGNOSIS: Gastrointestinal bleed. SECONDARY DIAGNOSES: 1. Atrial fibrillation. 2. Hypertension. 3. Hyperlipidemia. 4. Hypothyroid. 5. Chronic obstructive pulmonary disease. STUDIES WHILE IN THE HOSPITAL: 1. 07/23/19 ECG: Ventricular paced rhythm, rate 70. 2. 07/22/19 chest x-ray: No evidence for acute disease, cardiomegaly, and postoperative changes. 3. EGD: Complete upper endoscopy into the distal duodenum with biopsy, biopsy for MIKE, multiple duodenal petechiae potential culprit for his anemia. He very well could have other petechiae further down in his small bowel. These petechiae were numerous, very small, unable to cauterize, any or all of them. I do think that we need double up on proton pump inhibitor therapy. We will continue his aspirin given his cardiac history and would like to let him eat later on today. If he tolerates well, he can probably be discharged later on today. I would like him to have a repeat CBC in 3 to 4 weeks. For now, he should make Telemedicine visit with Dr. Owens in approximately 2 weeks from now. HISTORY OF PRESENT ILLNESS AND HOSPITAL COURSE: Mr. Romero is a 79-year-old male with past medical history significant for atrial fibrillation, congestive heart failure with low ejection fraction 25%, ischemic cardiomyopathy, CAD, hypothyroid, dyslipidemia, GI bleed with AVM, presented to the ER on 07/22/19 for weakness, lightheadedness, and bright red blood in toilet. While in the ER , consult was made to Dr. Day for GI bleed and low H and H. In light of hemoglobin 7.8 and hematocrit 24 in the setting of symptomatic anemia with lightheadedness and weakness, Dr. Day suggested transfusing with 1 unit of packed red blood cells and rechecking H and H every 6 to 8 hours and transfuse for H and H for hemoglobin less than 8. Following transfusion of 1 unit of packed red blood cells, the patient had significant relief of symptoms. The patient was no longer feeling weak or lightheaded. The patient had 1 medium bowel movement while in the hospital, which presented with bright red blood. No further BMs or rectal bleeding noted while admitted. Being concerned for the patient's history of GI bleed and AVM, Dr. Owens was consulted for EGD. EGD reveals multiple small petechiae in the duodenum with potential for being origin of bleeding, however, petechiae were not bleeding, none were cauterized. For more information, see EGD report above. The patient is hemodynamically stable following EGD and continued to be without complaint. Dr. Owens suggested the patient eat following EGD. Mr. Romero is tolerating oral intake and exhibiting no further rectal bleeding and remains hemodynamically stable. Dr. Owens did suggest increasing PPI from 20 to 40 mg a day x4 weeks and followup with him via Telemedicine in his office. The patient is stable for discharge. While in the ED, the patient had complaints of cough and shortness of breath as well, though chest x-ray was negative for acute disease. The patient was placed on contact precautions for COVID-19 infection, results came back undetected. PHYSICAL EXAMINATION: Mr. Romero is an elderly gentleman with pale complexion, not currently in any distress, no physical complaints. HEENT: Head is atraumatic normocephalic. Eyes without scleral icterus. EOMs intact. Pupils are PERRL. Normal gums, lips. Clear oropharynx. Mucous membranes are moist. Neck has normal appearance and movement. Normal JVP. Trachea is midline. Respiratory: Symmetrical chest expansion and respiratory effort. Clear to auscultation. Heart: Normal sounds. No murmurs, rubs or gallops appreciated. Regular rate and rhythm. No JVD. No edema. Abdomen: Bowel sounds normal x4 quadrants. No tenderness, no distention, no hepatosplenomegaly. Skin: No rashes or ulcers. No nodules or sclerosis. Neurologic: The patient is alert and oriented x3. Normal sensation. Normal muscle strength and tone. No focal deficits appreciated. Mr. Romero is stable for discharge. Most recent vital signs are as follows, 96.9 for temp, 71 for heart rate, 16 respirations, 100% on room air, and 101/45 blood pressure. DISCHARGE MEDICATIONS: Changed Medicine: 1. Prilosec 40 mg p.o. b.i.d. (previously 20 mg b.i.d.) Continued Medications: 1. Albuterol sulfate 2 puffs inhaled every 4 to 6 hours as needed for shortness of breath. 2. Albuterol/ipratropium nebulized solution 1 nebulized inhaler every 4 hours as needed for shortness of breath and wheezing. 3. Aspirin enteric coated tabs 81 mg p.o. q. a.m. 4. Atacand 8 mg p.o. q. p.m. 5. Carvedilol 12.5 mg p.o. b.i.d. 6. Digoxin 0.125 mg p.o. q. a.m. 7. Eplerenone 25 mg p.o. q. p.m. 8. Ferrous sulfate 325 mg p.o. daily. 9. Furosemide 20 mg p.o. daily. 10. Guaifenesin-dextromethorphan 600-30 mg tablets 1 by mouth b.i.d. 11. Krill oil capsule 1000 mg softgel 1 capsule p.o. q. p.m. 12. Levothyroxine 100 mcg p.o. q. a.m. 13. Magnesium oxide 400 mg p.o. b.i.d. 14. Mometasone 1 puff inhaled b.i.d. 15. Mometasone nasal spray 2 sprays both nares bedtime as needed for congestion. 16. Simvastatin 40 mg p.o. q. p.m. 17. Kenalog cream 1 topical application b.i.d. as needed for eczema. DISCHARGE PLAN: ACTIVITY: As tolerated. Increase omeprazole to 40 mg by mouth twice daily x4 weeks, then resume 20 mg by mouth. Have your CBC rechecked in 4 weeks around to verify the hemoglobin and hematocrit have returned to normal. Follow up with Dr. Owens in 4 weeks. Call office for Telemedicine visit. 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 Please return to the ER if you develop any further bleeding from the rectum, severe abdominal pain, bloody vomitus, chest pain, shortness of breath, dizziness or any other concerning symptoms. DISCHARGE CONDITION: Stable. DISCHARGE DISPOSITION: Home. This is a summarized report of complex medical history and 3 day hospital admission. For further details, please see the entire medical record. TIME SPENT: Approximately 45 minutes was spent on this discharge. HAVEN ODONNELL, TERESSA [id number]/[facility] #: [id number] [facility]PITALRiley
== END 2019-07-24 16:30 | disposition home health service (06) | DRG 378 ==
LOC: ED 14:11 → MED 17:25
PROVIDERS: ADMIT Hospitalist; ATTEND Internal Medicine
PROC: 30233N1 Transfusion of Nonautologous Red Blood Cells into Peripheral Vein, Percutaneous Approach (ICD-10-PCS; principal; 2019-07-22)
PROC: 0DD98ZX Extraction of Duodenum, Via Natural or Artificial Opening Endoscopic, Diagnostic (ICD-10-PCS; 2019-07-24)
PROC: 0DD68ZX Extraction of Stomach, Via Natural or Artificial Opening Endoscopic, Diagnostic (ICD-10-PCS; 2019-07-24)
DX: K92.1 Melena (principal); D62 Acute posthemorrhagic anemia; I50.20 Unspecified systolic (congestive) heart failure; I11.0 Hypertensive heart disease with heart failure; I48.91 Unspecified atrial fibrillation; E78.5 Hyperlipidemia, unspecified; E03.9 Hypothyroidism, unspecified; J44.9 Chronic obstructive pulmonary disease, unspecified; R05 Cough; Z66 Do not resuscitate; R06.02 Shortness of breath; M19.90 Unspecified osteoarthritis, unspecified site; Z20.828 Contact with and (suspected) exposure to other viral communicable diseases; I25.5 Ischemic cardiomyopathy; I25.10 Atherosclerotic heart disease of native coronary artery without angina pectoris; I71.4 Abdominal aortic aneurysm, without rupture; Z96.642 Presence of left artificial hip joint; Z95.810 Presence of automatic (implantable) cardiac defibrillator; Z95.1 Presence of aortocoronary bypass graft; Z79.82 Long term (current) use of aspirin; Z79.899 Other long term (current) drug therapy; Z88.1 Allergy status to other antibiotic agents; Z88.8 Allergy status to other drugs, medicaments and biological substances; Z91.018 Allergy to other foods; Z80.6 Family history of leukemia; Z82.3 Family history of stroke; Z87.891 Personal history of nicotine dependence; I25.2 Old myocardial infarction
CPT/HCPCS: 36415; 71045; 80048; 80053; 81003; 82270; 83605; 83735; 84443; 84484; 85014; 85018; 85025; 85610; 85730; 86850; 86900; 86901; 86922; 87077; 87635; 93005; 94640; 96374; 96375; 99156; 99157; 99284; A9270-GY; J1940; J2250; J3010; P9040; U0003

== ENCOUNTER 2019-07-27 14:13 | Inpatient (IN) | payer MEDICARE ==
[2019-07-27] MEDS ORDERED: Pantoprazole VIAL 40 MG VIAL IV ONE (14:36)
[2019-07-27] MEDS ORDERED: NS 0.9% 1000 ml BAG 1,000 ML IV ONE (14:38)
[2019-07-27] MEDS ORDERED: Pantoprazole 80 mg in NS BAG 80 MG/250 ML BAG IV ONE (15:00)
[2019-07-27 15:18] LABS: Hematocrit 21 % (42-52); Hemoglobin 6.8 g/dL (14.0-18.0); Mean Corpuscular HGB Conc 33 g/dL (31-36); Mean Corpuscular Hemoglobin 31 pg (27-31); Mean Corpuscular Volume 95 fL (80-94); Mean Platelet Volume 9.5 fL (7.4-10.4); Platelet Count 172 10^3/uL (150-450); Red Blood Count 2.18 10^6 /uL (4.18-5.48); Red Cell Distribution Width 20 % (10-15); White Blood Count 7.4 10^3/uL (3.5-10.8)
[2019-07-27 15:53] LABS: Albumin 3.4 g/dL (3.2-5.2); Albumin/Globulin Ratio 1.2 (1-3); BUN/Creatinine Ratio 33.7 (8-20); Calcium 8.4 mg/dL (8.6-10.3); EGFR African American 48.8 (>60); EGFR Non-African American 40.4 (>60); Globulin 2.8 g/dL (2-4); Potassium 4.4 mmol/L (3.5-5.0); Total Bilirubin 0.6 mg/dL (0.2-1.0); Total Protein 6.2 g/dL (6.4-8.9)
[2019-07-27] MEDS ORDERED: Albuterol/Ipratropium NEB.SOL (2.5/0.5 MG) 3 ML NEB.SOLN INH PRN (16:31)
[2019-07-27] MEDS ORDERED: Fluticasone NASAL SPRAY 50MCG 16 gm SPRAY BTL BOTH NARES PRN (16:31)
[2019-07-27] MEDS ORDERED: Triamcinolone 0.5% OINT 1 TUBE TOPICAL PRN (16:31)
[2019-07-27] MEDS ORDERED: Albuterol 2.5mg/3 ml (0.083%) NEB.SOLN INH PRN (16:31)
[2019-07-27] MEDS ORDERED: Furosemide 20 mg/2 ml IV VIAL IV SLOW PU ONE (16:37)
[2019-07-27] MEDS: Pantoprazole 80 mg in NS BAG 80 MG/250 ML BAG IV SCH (18:06)
[2019-07-27] MEDS: Mometasone 220 MCG MDI INH SCH (19:24)
[2019-07-27 20:14] LABS: Hematocrit 22 % (42-52); Hemoglobin 7.4 g/dL (14.0-18.0)
[2019-07-28] MEDS: Pantoprazole 80 mg in NS BAG 80 MG/250 ML BAG IV SCH ×3 (01:39→23:29)
[2019-07-28] MEDS: Levothyroxine 100 MCG/5 ML VIAL IV SCH (05:27)
[2019-07-28 07:58] LABS: ABS Basophils 0.1 10^3/ul (0-0.2); ABS Eosinophils 0.2 10^3/ul (0-0.6); ABS Monocytes 0.6 10^3/ul (0-0.8); Hematocrit 21 % (42-52); Hemoglobin 7.1 g/dL (14.0-18.0); Lymphocyte % 15.2 %; Mean Corpuscular HGB Conc 33 g/dL (31-36); Mean Corpuscular Hemoglobin 31 pg (27-31); Mean Corpuscular Volume 92 fL (80-94); Mean Platelet Volume 9.2 fL (7.4-10.4); Platelet Count 133 10^3/uL (150-450); Red Blood Count 2.32 10^6 /uL (4.18-5.48); Red Cell Distribution Width 18 % (10-15); White Blood Count 6.4 10^3/uL (3.5-10.8)
[2019-07-28] MEDS: Mometasone 220 MCG MDI INH SCH ×2 (07:58→19:28)
[2019-07-28 08:14] LABS: Calcium 7.9 mg/dL (8.6-10.3); Potassium 4.4 mmol/L (3.5-5.0)
[2019-07-28 08:20] LABS: BUN/Creatinine Ratio 33.3 (8-20); EGFR African American 54.9 (>60); EGFR Non-African American 45.4 (>60)
[2019-07-28] MEDS ORDERED: NS 0.9% 1000 ml BAG 1,000 ML IV SCH (09:30)
[2019-07-28] MEDS ORDERED: fentaNYL 100 mcg/2 ml 50 MCG/ML VIAL ONE (09:57)
[2019-07-28] MEDS ORDERED: Midazolam 10 mg/10 ml VIAL 1 mg/ml 10 ml VIAL (10 mg) ONE (09:57)
[2019-07-28] MEDS ORDERED: PEG 3000 GI LAVAGE 1 GALLON PO ONE (15:30)
[2019-07-29] MEDS: Levothyroxine 100 MCG/5 ML VIAL IV SCH (06:03)
[2019-07-29] MEDS: Mometasone 220 MCG MDI INH SCH ×2 (08:11→19:46)
[2019-07-29 09:44] LABS: ABS Basophils 0.1 10^3/ul (0-0.2); ABS Eosinophils 0.2 10^3/ul (0-0.6); ABS Lymphocytes 0.8 10^3/ul (1.0-4.8); ABS Monocytes 0.6 10^3/ul (0-0.8); Eosinophil % 3.3 %; Hematocrit 22 % (42-52); Hemoglobin 7.6 g/dL (14.0-18.0); Lymphocyte % 15.1 %; Mean Corpuscular HGB Conc 34 g/dL (31-36); Mean Corpuscular Hemoglobin 31 pg (27-31); Mean Corpuscular Volume 92 fL (80-94); Mean Platelet Volume 8.5 fL (7.4-10.4); Nucleated Red Blood Cells % 0.1; Platelet Count 134 10^3/uL (150-450); Red Blood Count 2.44 10^6 /uL (4.18-5.48); Red Cell Distribution Width 18 % (10-15); White Blood Count 5.2 10^3/uL (3.5-10.8)
[2019-07-29] MEDS: Pantoprazole 80 mg in NS BAG 80 MG/250 ML BAG IV SCH ×2 (09:50→20:47)
[2019-07-29 10:00] LABS: BUN/Creatinine Ratio 23.5 (8-20); EGFR African American 63.6 (>60); EGFR Non-African American 52.6 (>60); Potassium 4.1 mmol/L (3.5-5.0)
[2019-07-29] MEDS ORDERED: Furosemide 20 mg/2 ml IV VIAL IV ONE (12:05)
[2019-07-30] MEDS: Pantoprazole 80 mg in NS BAG 80 MG/250 ML BAG IV SCH ×2 (05:26→17:30)
[2019-07-30] MEDS: Levothyroxine 100 MCG/5 ML VIAL IV SCH (05:26)
[2019-07-30 06:21] LABS: ABS Basophils 0.1 10^3/ul (0-0.2); ABS Eosinophils 0.2 10^3/ul (0-0.6); ABS Lymphocytes 0.8 10^3/ul (1.0-4.8); ABS Monocytes 0.8 10^3/ul (0-0.8); Eosinophil % 3.2 %; Hematocrit 24 % (42-52); Hemoglobin 7.9 g/dL (14.0-18.0); Lymphocyte % 10.6 %; Mean Corpuscular HGB Conc 34 g/dL (31-36); Mean Corpuscular Hemoglobin 31 pg (27-31); Mean Corpuscular Volume 93 fL (80-94); Mean Platelet Volume 9.2 fL (7.4-10.4); Platelet Count 124 10^3/uL (150-450); Red Blood Count 2.53 10^6 /uL (4.18-5.48); Red Cell Distribution Width 17 % (10-15); White Blood Count 7.2 10^3/uL (3.5-10.8)
[2019-07-30 06:37] LABS: BUN/Creatinine Ratio 17.3 (8-20); Calcium 8.1 mg/dL (8.6-10.3); EGFR African American 66.5 (>60); Potassium 3.5 mmol/L (3.5-5.0)
[2019-07-30] MEDS: Mometasone 220 MCG MDI INH SCH ×2 (07:54→19:03)
[2019-07-30] MEDS ORDERED: PEG 3000 GI LAVAGE 1 GALLON PO ONE (08:00)
[2019-07-30] MEDS ORDERED: Aspirin EC 81 mg TAB.EC (enteric coated) PO SCH (09:00)
[2019-07-30] MEDS ORDERED: Furosemide 20 mg/2 ml IV VIAL IV ONE (09:52)
[2019-07-30] MEDS ORDERED: fentaNYL 100 mcg/2 ml 50 MCG/ML VIAL ONE (10:08)
[2019-07-30] MEDS ORDERED: Midazolam 10 mg/10 ml VIAL 1 mg/ml 10 ml VIAL (10 mg) ONE (10:08)
[2019-07-30] MEDS ORDERED: CANDESARTAN 16 MG PO SCH (18:00)
[2019-07-30] MEDS ORDERED: Polyethylene Glycol 3350 17 GM PACKET PO SCH (18:00)
[2019-07-30 21:54] VITALS: BP 103/34
[2019-07-31] MEDS ORDERED: Iron Sucrose 20 MG/ML 5 ML VIAL ONE (09:50)
[2019-07-31] MEDS ORDERED: NS 0.9% ONE (09:50)
[2019-07-31] MEDS ORDERED: FLUID ONE (09:50)
[2019-08-01 00:10] LABS: Hematocrit 24 % (42-52); Hemoglobin 8.2 g/dL (14.0-18.0); Mean Corpuscular HGB Conc 34 g/dL (31-36); Mean Corpuscular Hemoglobin 31 pg (27-31); Mean Corpuscular Volume 91 fL (80-94); Mean Platelet Volume 9.3 fL (7.4-10.4); Platelet Count 120 10^3/uL (150-450); Red Blood Count 2.64 10^6 /uL (4.18-5.48); Red Cell Distribution Width 16 % (10-15); White Blood Count 5.1 10^3/uL (3.5-10.8)
[2019-08-01 00:11] LABS: ABS Eosinophils 0.2 10^3/ul (0-0.6); ABS Lymphocytes 0.8 10^3/ul (1.0-4.8); ABS Monocytes 0.6 10^3/ul (0-0.8)
[2019-08-01 00:12] LABS: BUN/Creatinine Ratio 12.3 (8-20); Calcium 8.1 mg/dL (8.6-10.3); EGFR African American 69.7 (>60); EGFR Non-African American 57.6 (>60); Potassium 3.3 mmol/L (3.5-5.0)
== END 2019-07-31 13:30 | disposition home or self-care (01) | DRG 393 ==
LOC: ED 14:13 → MEDTELE 15:59
PROVIDERS: ADMIT Internal Medicine; ATTEND Hospitalist